=== PATIENT | male | born 1965 | race Two or more races ===

== ENCOUNTER 2022-03-22 18:31 | Inpatient (IN) | payer MEDICAID ==
[~2022-03-22] VITALS: Ht 157.5 cm; Wt 52.2 kg
[2022-03-22] MEDS ORDERED: IV NS 0.9% 1,000 ML BAG IV ONE ×2 (19:00→20:30)
--- NOTE | 2022-03-22 19:12 | NUR ---
BLOOD DRAWN AND SENT TO LAB
--- NOTE | 2022-03-22 19:20 | NUR ---
COVID ANTIGEN SWAB COLLECTED AND SENT TO LAB
--- NOTE | 2022-03-22 19:24 | NUR ---
PT TAKEN TO CT VIA BEN
--- NOTE | 2022-03-22 19:37 | NUR ---
PT RETURNED TO ER BED [address]
[2022-03-22 19:38] LABS: SERUM AMMONIA 157 umol/L (11-32)
[2022-03-22 19:43] LABS: CALCIUM, SERUM 7.3 mg/dL (8.5-10.1); CARBON DIOXIDE 20 mmol/L (21-32); CHLORIDE 93 mmol/L (98-107); POTASSIUM 3.4 mmol/L (3.5-5.1); SODIUM SERUM 126 mmol/L (136-145); UREA NITROGEN, BLOOD 54 mg/dL (7-18)
[2022-03-22 19:45] LABS: GLUCOSE 575 mg/dL (74-106)
--- NOTE | 2022-03-22 19:45 | NUR ---
GLUCOSE 575
--- NOTE | 2022-03-22 19:46 | NUR ---
LACTIC ACID 4.5
[2022-03-22 19:52] LABS: ALANINE AMINOTRANSFERASE 28 U/L (12-78); ALBUMIN 2.9 g/dL (3.4-5.0); ALKALINE PHOSPHATASE 206 U/L (46-116); ASPARTATE AMINOTRANSFERASE 40 U/L (15-37); BILIRUBIN,DIRECT 0.4 mg/dL (0.0-0.2); TOTAL PROTEIN, SERUM 6.7 g/dL (6.4-8.2)
[2022-03-22] MEDS ORDERED: PIPERACILLIN /TAZOBACTAM 3.375 G in IV D5W 50 ML IV ONE (20:30)
[2022-03-22 20:32] LABS: BASOPHILS % (AUTO) 0.3 % (0.0-2.0); EOSINOPHILS % (AUTO) 1.8 % (0.0-6.0); HEMATOCRIT 30 % (39-51); HEMOGLOBIN 9.7 g/dL (13.5-17.5); LYMPHOCYTES # (AUTO) 0.2 K/uL (0.8-4.8); MEAN CORPUSCULAR HGB CONC 32 g/dl (31.0-36.0); MEAN CORPUSCULAR VOLUME 95 fL (80-96); MONOCYTES # (AUTO) 0.3 K/uL (0.1-1.30); MONOCYTES % (AUTO) 12.8 % (2.0-12.0); NEUTROPHILS # (AUTO) 1.9 K/uL (1.8-8.9); NEUTROPHILS % (AUTO) 76.1 % (43.0-81.0); RED BLOOD CELL COUNT(AUTO) 3.15 MIL/uL (4.5-6.0); WHITE BLOOD COUNT (AUTO) 2.5 K/uL (4.3-11.0)
[2022-03-22 20:36] LABS: PLATELET COUNT (AUTO) 29 K/uL (150-450)
--- NOTE | 2022-03-22 20:37 | NUR ---
PLATELETS 29,000
[2022-03-22] MEDS ORDERED: INSULIN REGULAR, HUMAN 100 UNIT/ML 10 ML VIAL ONE (20:43)
[2022-03-22] MEDS ORDERED: PIPERACILLIN /TAZOBACTAM 3.375 G VIAL IV ONE (20:43)
[2022-03-22] MEDS ORDERED: POTASSIUM CL. PREMIX PERIPHER. 100 ML ONE (20:43)
--- NOTE | 2022-03-22 20:52 | NUR ---
ACCUCHECK POC BS - 418
--- NOTE | 2022-03-22 20:58 | NUR ---
SECOND IV LINE ESTABLISHED, R FOREARM 20G.
[2022-03-22] MEDS ORDERED: INSULIN REGULAR, HUMAN 100 UNIT/ML 10 ML VIAL IV ONE (21:00)
[2022-03-22] MEDS: POTASSIUM CL. PREMIX PERIPHER. 50 ML IV SCH ×2 (21:08→22:08)
[2022-03-22 21:21] LABS: BAND % (MANUAL) 4 % (0.0-5.0); EOSINOPHILS % (MANUAL) 1 % (0-4); LYMPHOCYTES % (MANUAL) 10 % (16-48); MONOCYTES % (MANUAL) 13 % (0-11.0); NEUTROPHILS % (MANUAL) 72 (42-76)
[2022-03-22 21:25] LABS: ABG BASE EXCESS -6.2 mmol/L; ABG PCO2 29.6 mmHg (35.0-45.0); ABG PH 7.396 (7.350-7.450); ABG PO2 94.3 mmHg (75.0-100.0); COHb 0.3 % (0.5-1.5); MetHb 0.4 % (0.0-1.5); O2Hb 95.5 % (94.0-97.0); SITE, ABG Right Brachial; VENT MODE, BG RA
--- NOTE | 2022-03-22 21:35 | NUR ---
SET UP WORKER AT PT'S BEDSIDE
--- NOTE | 2022-03-22 21:47 | NUR ---
MARKER DELIVERY AT PT'S BEDSIDE
[2022-03-22] MEDS ORDERED: ONDANSETRON HCL/PF 4 MG/2 ML VIAL IVP PRN (22:00)
[2022-03-22] MEDS ORDERED: ALBUMIN 25% 12.5 GM/50 ML BOTTLE IV ONE (22:00)
[2022-03-22] MEDS ORDERED: DEXTROSE 50%-WATER 50 ML DISP.SYRIN IV PRN (22:00)
[2022-03-22] MEDS ORDERED: INSULIN REGULAR, HUMAN 100 UNIT/ML 3 ML VIAL SQ PRN (22:00)
[2022-03-22] MEDS ORDERED: ACETAMINOPHEN 325 MG TABLET PO PRN (22:00)
[2022-03-22] MEDS: BLOOD SUGAR DIAGNOSTIC 1 EACH STRIP IN SCH (22:45)
--- NOTE | 2022-03-22 22:45 | NUR ---
ACCUCHECK DONE BS 202mg/dl
[2022-03-22] MEDS: LACTULOSE 10 G/15 ML UDC (PYXIS) PO SCH (23:00)
[2022-03-22] MEDS: IV NS 0.9% 1,000 ML IV PRN (23:46)
[2022-03-23] MEDS ORDERED: FURO20TA4 PO (00:22)
[2022-03-23] MEDS ORDERED: METF-440 PO (00:23)
--- NOTE | 2022-03-23 01:53 | NUR ---
URINE OUTPUT 620CC VIA URINAL
--- NOTE | 2022-03-23 04:54 | NUR ---
BC SOUNDING DEVICE OPERATOR HOSPITALIST AT PT'S BEDSIDE
[2022-03-23 05:18] LABS: BASOPHILS % (AUTO) 0.6 % (0.0-2.0); EOSINOPHILS % (AUTO) 2.8 % (0.0-6.0); HEMATOCRIT 26 % (39-51); HEMOGLOBIN 8.7 g/dL (13.5-17.5); LYMPHOCYTES # (AUTO) 0.3 K/uL (0.8-4.8); LYMPHOCYTES % (AUTO) 14.7 % (20.0-44.0); MEAN CORPUSCULAR HGB CONC 33 g/dl (31.0-36.0); MEAN CORPUSCULAR VOLUME 93 fL (80-96); MONOCYTES # (AUTO) 0.2 K/uL (0.1-1.30); MONOCYTES % (AUTO) 10.7 % (2.0-12.0); NEUTROPHILS # (AUTO) 1.5 K/uL (1.8-8.9); NEUTROPHILS % (AUTO) 71.2 % (43.0-81.0); RED BLOOD CELL COUNT(AUTO) 2.84 MIL/uL (4.5-6.0); WHITE BLOOD COUNT (AUTO) 2.2 K/uL (4.3-11.0)
[2022-03-23 05:31] LABS: CALCIUM, SERUM 7.4 mg/dL (8.5-10.1); CREATININE 1.5 mg/dL (0.6-1.3); MAGNESIUM 2.6 mg/dL (1.8-2.4); PHOSPHORUS 3.7 mg/dL (2.5-4.9); POTASSIUM 3.6 mmol/L (3.5-5.1)
--- NOTE | 2022-03-23 05:38 | NUR ---
PER LAB, PLT 20
[2022-03-23] MEDS ORDERED: LACTULOSE 10 G/15 ML UDC (PYXIS) ONE ×2 (06:28→18:41)
[2022-03-23] MEDS: LACTULOSE 10 G/15 ML UDC (PYXIS) PO SCH ×2 (06:30→18:40)
--- NOTE | 2022-03-23 06:57 | NUR ---
ADLS DONE; PT AMBULATORY TO RESTROOM WITH SUPERVISION.
--- NOTE | 2022-03-23 07:25 | NUR ---
Recived pt from NORMA RN pt awake and alert respiation spon and easy no SOB ON ROOM air o2 sat 98% abdomin tigre and distended
--- NOTE | 2022-03-23 07:30 | NUR ---
DR. LEWIS here at bed side examin pt order and closly observ
[2022-03-23] MEDS ORDERED: SPIR100T5 PO (07:54)
[2022-03-23] MEDS ORDERED: DOCU-275 PO (07:54)
[2022-03-23] MEDS ORDERED: APIX2.5T PO (07:54)
[2022-03-23] MEDS ORDERED: MIDO2.5T PO (07:54)
--- NOTE | 2022-03-23 08:13 | NUR ---
vs stable for pt contenue observe and monited wating to césar bed
[2022-03-23] MEDS: BLOOD SUGAR DIAGNOSTIC 1 EACH STRIP IN SCH ×4 (08:50→22:34)
--- NOTE | 2022-03-23 09:24 | NUR ---
offered patient meal and verbalized "i don't want to eat". no insulin coverage given.
[2022-03-23 10:25] LABS: PLATELET COUNT (AUTO) 20 K/uL (150-450)
--- NOTE | 2022-03-23 10:51 | NUR ---
pt asleepy responded when call came
[2022-03-23] MEDS: MIDODRINE HCL 2.5 MG TABLET PO SCH (18:40)
[2022-03-23] MEDS ORDERED: MIDODRINE HCL (5MG) 5 MG TABLET ONE (18:41)
[2022-03-23] MEDS: IV NS 0.9% 1,000 ML IV PRN (18:58)
--- NOTE | 2022-03-23 19:02 | NUR ---
GOT BED 115-2
--- NOTE | 2022-03-23 20:05 | NUR ---
REPORT GIVEN TO JANELLE MIDDLETON FOR TRAVIS. UPDATED ROOM 116-2
[2022-03-23 20:20] VITALS: BP 99/66
--- NOTE | 2022-03-23 20:20 | NUR ---
césar rn notes Admitted a 57 y/o male a/ox3 able to make needs known with dx of LEAH under the service of damián hoffman . pts is npo status , all neeeds attended to . pts noted with abdominal distension , ascites , kept pts comfortable , call light within reach , will continue to monitor.
--- NOTE | 2022-03-23 20:25 | NUR ---
PT TRANSFERRED TO [facility] BED 116-2 VIA ACLS PROTOCOL. ALL BELONGINGS WITH PT. VSS
[2022-03-23] MEDS ORDERED: DEXTROSE 50%-WATER 50 ML DISP.SYRIN IV PRN (22:30)
[2022-03-23] MEDS ORDERED: *INSULIN REGULAR(HUMULIN R)HUM 100 UNIT/ML VIAL SQ PRN (22:30)
[2022-03-23] MEDS: INSULIN REGULAR, HUMAN 100 UNIT/ML 3 ML VIAL SQ PRN (22:34)
--- NOTE | 2022-03-23 22:38 | NUR ---
césar rn notes Blood sugar at 2200 hrs is 196mg/dl 4 units of regular insulin given per sliding scale pts on po diet will continue to monitor pts.
[2022-03-24] VITALS: BP 102/66
[2022-03-24 04:00] VITALS: BP 90/53
[2022-03-24] MEDS: LACTULOSE 10 G/15 ML UDC (PYXIS) PO SCH ×2 (06:00→17:29)
--- NOTE | 2022-03-24 06:47 | NUR ---
clerk television production notes pts remain in bed awake alert and responsive npo status , continue on iv fluids ns at 75cc/hr infusing well . all needs meet , will endorse to rn day shift for continuity of care
[2022-03-24 07:18] LABS: BASOPHILS % (AUTO) 0.9 % (0.0-2.0); EOSINOPHILS % (AUTO) 4.9 % (0.0-6.0); HEMATOCRIT 28 % (39-51); HEMOGLOBIN 9.1 g/dL (13.5-17.5); LYMPHOCYTES # (AUTO) 0.4 K/uL (0.8-4.8); MEAN CORPUSCULAR HGB CONC 33 g/dl (31.0-36.0); MEAN CORPUSCULAR VOLUME 93 fL (80-96); MONOCYTES # (AUTO) 0.3 K/uL (0.1-1.30); MONOCYTES % (AUTO) 12.5 % (2.0-12.0); NEUTROPHILS # (AUTO) 1.6 K/uL (1.8-8.9); NEUTROPHILS % (AUTO) 64.7 % (43.0-81.0); RED BLOOD CELL COUNT(AUTO) 2.96 MIL/uL (4.5-6.0); WHITE BLOOD COUNT (AUTO) 2.5 K/uL (4.3-11.0)
--- NOTE | 2022-03-24 07:20 | NUR ---
RN NOTE RECEIVED PATIENT IN BED RESTING ALERT ORIENTED X3 VERBALLY RESPONSIVE ON ROOM AIR O2:97% IV SITE IS ON RIGHT AC INTACT PATENT ON IV HYDRATION NS 75CC/HR SAFETY MEASURE IMPLEMENT BED IN LOW POSITION AND LOCKED, CALL LIGHT WITHIN REACH, CONTINUE TO MONITOR.
[2022-03-24] MEDS: BLOOD SUGAR DIAGNOSTIC 1 EACH STRIP IN SCH ×4 (07:27→22:04)
[2022-03-24 07:38] LABS: PLATELET COUNT (AUTO) 27 K/uL (150-450)
[2022-03-24 07:45] LABS: ALBUMIN 2.5 g/dL (3.4-5.0); BILIRUBIN,DIRECT 0.3 mg/dL (0.0-0.2); BILIRUBIN,TOTAL 0.9 mg/dL (0.2-1.0); CALCIUM, SERUM 7.5 mg/dL (8.5-10.1); CREATININE 1.2 mg/dL (0.6-1.3); MAGNESIUM 2.5 mg/dL (1.8-2.4); PHOSPHORUS 3.1 mg/dL (2.5-4.9); POTASSIUM 3.5 mmol/L (3.5-5.1); TOTAL PROTEIN, SERUM 5.6 g/dL (6.4-8.2)
[2022-03-24 08:00] VITALS: BP 95/65
[2022-03-24] MEDS: DOCUSATE SODIUM 100 MG CAPSULE PO SCH (09:00)
[2022-03-24] MEDS: MIDODRINE HCL 2.5 MG TABLET PO SCH (09:00)
[2022-03-24] MEDS: IV NS 0.9% 1,000 ML IV PRN ×2 (09:11→22:06)
[2022-03-24 12:00] VITALS: BP 91/65
--- NOTE | 2022-03-24 15:57 | NUR ---
RN NOTE RADIOLOGY CALLED THEY CANNOT DO PARACENTESIS BECAUSE PATIENT PLATELET IS LOW 27 SHOULD BE ABOVE [address] OGLESBY SHE ORDERED ONE UNIT PLATELETS AND TRY TOMORROW NOTED AND CARRIED OUT.
[2022-03-24 16:00] VITALS: BP 95/64
[2022-03-24] MEDS: MIDODRINE HCL (5MG) 5 MG TABLET PO SCH (17:28)
--- NOTE | 2022-03-24 18:00 | NUR ---
RN NOTE CONSENT FOR BLOOD TRANSFUSION AND PARACENTESIS DONE,PATIENT SIGNED CONSENT PAPERS AFTER EXPLAINED,RISKS AND BENEFITS IN [place] WITH ANG[place]AN COWORKER.
--- NOTE | 2022-03-24 19:15 | NUR ---
RN NOTE RECEIVED PATIENT IN BED, AO X 3-4, SLOVAK SPEAKING, IN NO ACUTE DISTRESS AT THIS TIME. RESPIRATIONS UNLABORED, SATURATION AT 97% ON ROOM AIR, SR ON THE MONITOR, HR IS 88. NOTED IV SITE AT RFA 22G, AND LFA 20G, BOTH PATENT AND FLUSHING WELL, NO S/S OF INFECTION OR INFILTRATION. PATIENT CONTINENT AND USES URINAL. NPO STATUS MAINTAINED PER MD ORDER, AWAITING US GUIDED PARACENTESIS. PER RADHA MIDDLETON, WITH MD ORDER FOR PLATELET TRANSFUSION CURRENT PLATELET LEVEL IS 27. SAFETY MEASURES IMPLEMENTED. PATIENT BED ALARM IS ON. HEAD OF BED ELEVATED. BED IS LOCKED, IN LOWEST POSITION AND SIDE RAILS UP. CALL LIGHT WITHIN REACH OF THE PATIENT. WILL CONTINUE TO MONITOR AND REASSESS FOR ANY CHANGES.
--- NOTE | 2022-03-24 19:52 | NUR ---
RN NOTE PATIENT REMAINS ALERT ORIENTED X3 VERBALLY RESPONSIVE NO SOB NOT ACUTE DISTRESS NOTED,ENDORSE NEXT COMING SHIFT FOR CONTINUATION OF CARE.
[2022-03-24 20:00] VITALS: BP 92/64
--- NOTE | 2022-03-24 20:30 | NUR ---
RN NOTE TELEPHONE CALL TO LAB, SPOKE WITH SHAYLA, VERIFIED IF ORDER FOR BLOOD TRANSFUSION WAS RECEIVED, ADVISED HER PT HAS MD ORDER FOR PLATELET WITH PARAMETER TO TRANSFUSE IF PLATELET IS <50, SHE SAID NO BLOOD TRANSFUSION ORDERS RECEIVED. CLARIFIED ORDER WITH DR YANCEY, PER RN REPORT, ORDER IS TO TRANSFUSE PLATELET BUT STANDING ORDER ON FILE IS FOR PLASMA IF PLATELET <50. CURRENT LEVEL IS 27. SHE STATED "1 UNIT PLATELET IS FINE".
[2022-03-24] MEDS: INSULIN REGULAR, HUMAN 100 UNIT/ML 3 ML VIAL SQ PRN (22:06)
--- NOTE | 2022-03-24 23:15 | NUR ---
RN NOTE TELEPHONE CALL TO LAB TO FOLLOW UP ON ORDERED PLATELET FOR TRANSFUSION, SPOKE WITH OG, STATED CLS IS GONE FOR THE DAY AND ANOTHER CLS WILL NOT BE AVAILABLE UNTIL AFTER 6 AM. NARROW GAUGE OPERATOR BARRIE ERVIN
[2022-03-25] VITALS: BP 95/61
[2022-03-25 04:00] VITALS: BP 96/67
[2022-03-25] MEDS: LACTULOSE 10 G/15 ML UDC (PYXIS) PO SCH ×3 (05:03→17:42)
--- NOTE | 2022-03-25 06:10 | NUR ---
RN NOTE TELEPHONE CALL TO BLOOD BANK TO FOLLOW UP ON ORDER FOR PLATELET, SPOKE WITH JOSE DAVID, STATED PLATELET NOT AVAILABLE INHOUSE AND WAS ORDERED FROM [facility]. HE SAID THEY ARE STILL WAITING TO HEAR BACK FROM [facility]. DR YANCEY WAS NOTIFIED.
[2022-03-25 06:59] LABS: BASOPHILS % (AUTO) 0.7 % (0.0-2.0); EOSINOPHILS % (AUTO) 5.7 % (0.0-6.0); HEMATOCRIT 33 % (39-51); HEMOGLOBIN 10.7 g/dL (13.5-17.5); LYMPHOCYTES # (AUTO) 0.6 K/uL (0.8-4.8); LYMPHOCYTES % (AUTO) 17.9 % (20.0-44.0); MEAN CORPUSCULAR HGB CONC 33 g/dl (31.0-36.0); MEAN CORPUSCULAR VOLUME 93 fL (80-96); MONOCYTES # (AUTO) 0.4 K/uL (0.1-1.30); MONOCYTES % (AUTO) 11.7 % (2.0-12.0); NEUTROPHILS # (AUTO) 2.2 K/uL (1.8-8.9); WHITE BLOOD COUNT (AUTO) 3.4 K/uL (4.3-11.0)
--- NOTE | 2022-03-25 07:00 | NUR ---
RN NOTE RECEIVED PATIENT IN BED RESTING ALERT ORIENTED X3 ON ROOM AIR IO2:99% IV SITE IS LEFT FOREARM AND RIGHT FOREARM INTACT PATENT,ON IV HYDRATION NS 75CC/HR SAFETY MEASURE IMPLEMENT BED IN LOW POSITION AND LOCKED, CALL LIGHT WITHIN REACH CONTINUE TO MONITOR.
--- NOTE | 2022-03-25 07:10 | NUR ---
RN NOTE PT REMAINS STABLE ON ROOM AIR, BM X3, AWAITING PLATELET TRANSFUSION, REPORT GIVEN TO RADHA MIDDLETON FOR TRAVIS.
[2022-03-25 07:13] LABS: PLATELET COUNT (AUTO) 35 K/uL (150-450)
[2022-03-25] MEDS: BLOOD SUGAR DIAGNOSTIC 1 EACH STRIP IN SCH ×4 (07:30→22:10)
[2022-03-25 07:31] LABS: CALCIUM, SERUM 8.2 mg/dL (8.5-10.1); CREATININE 1.2 mg/dL (0.6-1.3); MAGNESIUM 2.7 mg/dL (1.8-2.4); PHOSPHORUS 3.3 mg/dL (2.5-4.9); POTASSIUM 3.8 mmol/L (3.5-5.1)
[2022-03-25 08:00] VITALS: BP 101/79
[2022-03-25] MEDS: DOCUSATE SODIUM 100 MG CAPSULE PO SCH (08:41)
[2022-03-25] MEDS: MIDODRINE HCL (5MG) 5 MG TABLET PO SCH ×2 (08:44→17:32)
--- NOTE | 2022-03-25 09:25 | NUR ---
NOTIFIED RN SERGEI @ EXT. [id number] @ 08:27 THAT PLATELET COUNT IS LOW AND US GUIDED PARACENTESIS CANNOT BE DONE TODAY BASED ON PROTOCOL. RN WILL INFUSE PLATELETS AND PROCEDURE SHOULD BE FOLLOWED UP TOMORROW.
--- NOTE | 2022-03-25 09:26 | NUR ---
RN NOTE CALLED BLOOD BANK FOLLOW UP FOR PLATELET SPOKE WITH JOSE DAVID IS NOT AVAILABLE IN HOUSE WAITING FOR [facility] TO RECEIVE IT. Addendum: 03/25/22 at 1015 by RADHA JEFFERS RN ALSO NOTIFIED DR OGLESBY, CONTINUE TO MONITOR.
[2022-03-25] MEDS: IV NS 0.9% 1,000 ML IV PRN (11:26)
[2022-03-25 12:00] VITALS: BP 90/67
--- NOTE | 2022-03-25 12:39 | NUR ---
RN NOTE CALLED BLOOD BANK SPOKE WITH JOSE DAVID REGARDING PLATELET, HE SAID WHEN HE RECEIVED WILL LET ME KNOW DR OGLESBY AWARE.
[2022-03-25 16:00] VITALS: BP 108/69
--- NOTE | 2022-03-25 16:53 | NUR ---
RN NOTE CALLED BLOOD BANK FOLLOW UP FOR PLATELET NOT RECEIVED YET NOTIFIED STRAW HAT BRIM CUTTER OPERATOR,DR OGLESBY AWARE.
--- NOTE | 2022-03-25 19:05 | NUR ---
RN NOTE PATIENT REMAINS ALERT ORIENTED X3 VERBALLY RESPONSIVE ON ROOM AIR NO SOB NOT ACUTE DISTRESS NOTED, FOR PLATELET ENDORSE RISK CONTROL FIELD REPRESENTATIVE FOR FOLLOWING UP,ENDORSE COMING SHIFT FOR CONTINUATION OF CARE.
[2022-03-25 20:00] VITALS: BP 108/75
--- NOTE | 2022-03-25 21:06 | NUR ---
tourist camp attendant Opening Note Pt received in bed awake A&O x3. On RA with O2sat 98%, no s/s of resp distress, no SOB, non-labored breathing; appears comfortable. Attached to external monitor, SR with HR 90. IV lines LFA 20G and RFA 22G intact and patent; no s/s of infiltration; has NS running at 75 ml/hr. Bed in lowest position, call light within reach, side rails up x3. Will monitor throughout the night.
[2022-03-25] MEDS: INSULIN REGULAR, HUMAN 100 UNIT/ML 3 ML VIAL SQ PRN (22:18)
[2022-03-26] VITALS (10 sets, daily range): BP systolic 89–116; BP diastolic 60–83
[2022-03-26] MEDS: IV NS 0.9% 1,000 ML IV PRN ×2 (01:30→18:27)
[2022-03-26] MEDS: LACTULOSE 10 G/15 ML UDC (PYXIS) PO SCH ×2 (06:13→17:02)
[2022-03-26 06:34] LABS: CALCIUM, SERUM 7.8 mg/dL (8.5-10.1); CREATININE 1.4 mg/dL (0.6-1.3); MAGNESIUM 2.4 mg/dL (1.8-2.4); PHOSPHORUS 3.8 mg/dL (2.5-4.9); POTASSIUM 3.7 mmol/L (3.5-5.1)
[2022-03-26 06:37] LABS: EOSINOPHILS % (AUTO) 4.3 % (0.0-6.0); HEMATOCRIT 29 % (39-51); HEMOGLOBIN 9.6 g/dL (13.5-17.5); LYMPHOCYTES # (AUTO) 0.5 K/uL (0.8-4.8); LYMPHOCYTES % (AUTO) 19.1 % (20.0-44.0); MEAN CORPUSCULAR HGB CONC 33 g/dl (31.0-36.0); MEAN CORPUSCULAR VOLUME 94 fL (80-96); MONOCYTES # (AUTO) 0.3 K/uL (0.1-1.30); MONOCYTES % (AUTO) 10.8 % (2.0-12.0); NEUTROPHILS # (AUTO) 1.8 K/uL (1.8-8.9); NEUTROPHILS % (AUTO) 64.8 % (43.0-81.0); WHITE BLOOD COUNT (AUTO) 2.8 K/uL (4.3-11.0)
--- NOTE | 2022-03-26 06:54 | NUR ---
jewel stripper Closing Note Pt in bed, awake A&O x3; slept intermittently throughout the night. On RA with O2sat 99%, no s/s of resp distress, no SOB, non-labored breathing; appears comfortable. Attached to external monitor, SR throughout the night with HR 81. IV lines Left hand 20G and RFA 22G intact and patent; no s/s of infiltration; has NS running at 75 ml/hr. Still no notification from lab if they have received the platelets from [employer]; will endorse to dayshift nurse. All due meds and fluids administered throughout shift. Bed in lowest position, call light within reach, side rails up x3. Will endorse to dayshift nurse to continue care.
[2022-03-26] MEDS: BLOOD SUGAR DIAGNOSTIC 1 EACH STRIP IN SCH ×4 (07:46→23:40)
[2022-03-26 07:59] LABS: PLATELET COUNT (AUTO) 34 K/uL (150-450)
--- NOTE | 2022-03-26 08:00 | NUR ---
RN NOTES PATIENT ABLE TO AMBULATE W/ ASSIST; NOT IN ACUTE DISTRESS. CITIZEN OF [place]-SPEAKING, ABLE TO MAKE NEEDS KNOWN. CURRENTLY NPO STATUS. SAFETY MEASURES IN PLACE.
[2022-03-26] MEDS: DOCUSATE SODIUM 100 MG CAPSULE PO SCH (08:45)
[2022-03-26] MEDS: MIDODRINE HCL (5MG) 5 MG TABLET PO SCH ×2 (08:46→16:21)
[2022-03-26] MEDS: INSULIN REGULAR, HUMAN 100 UNIT/ML 3 ML VIAL SQ PRN ×2 (12:19→23:44)
--- NOTE | 2022-03-26 12:23 | NUR ---
RN NOTES ASKED PATIENT IF HE FEELS HUNGRY AND PATIENT STATED NO.
--- NOTE | 2022-03-26 13:35 | NUR ---
RN NOTES CALLED LAB AND FOLLOWED UP PLATELET BLOOD PRODUCT; SPOKE W/ [employer]. NO AVAILABLE PLATELET BUT WILL ORDER TODAY AND WILL LET US KNOW WHEN IT IS READY.
--- NOTE | 2022-03-26 13:52 | NUR ---
RN NOTES SPOKE W/ LAB; WILL HAVE PLATELET BLOOD PRODUCT IN ABOUT 4-5 HOURS COMING FROM [facility].
--- NOTE | 2022-03-26 15:03 | NUR ---
RN NOTES DR. OGLESBY MADE AWARE OF PATIENT'S NPO STATUS. PER MD, OK FOR PATIENT TO EAT FOR NOW THEN NPO POST MIDNIGHT. ORDER FOR MORPHINE 2MG IV Q6H PRN FOR ABDOMINAL PAIN.
[2022-03-26] MEDS: MORPHINE SULFATE INJ 2 MG/ML DISP.SYRIN IV PRN (16:26)
--- NOTE | 2022-03-26 18:15 | NUR ---
RN NOTES PATIENT W/ DINNER TRAY AT BEDSIDE. ENCOURAGED PATIENT TO EAT BUT PATIENT STATES THAT HE DOES NOT WANT TO EAT. PROVIDED JELLO AND WATER TO PATIENT, TAKEN FAIRLY. ASSISTED W/ TOILETING APPLICABLE. PAIN MGT APPROPRIATE. IVF INFUSING WELL. SAFETY MEASURES MAINTAINED.
--- NOTE | 2022-03-26 18:20 | NUR ---
RN NOTES NPO POST MIDNIGHT PER MD.
--- NOTE | 2022-03-26 20:09 | NUR ---
SCRIPT MANAGER OPENING NOTE PATIENT SLEEPING IN BED, EASILY AWAKENED, PATIENT ALERT/ORIENTED X 4, PRIMARILY MALAY SPEAKING. PT ABLE TO MAKE NEEDS KNOWN. PATIENT STABLE ON RA, NO S/S OF DISTRESS OR SOB NOTED, BREATHING EVEN AND UNLABORED. PATIENT ON EXTERNAL CAMERA REPAIRMAN READING SINUS RHYTHM, HR: 92. RFA #20G INTACT AND INFUSING NS @ 75 ML/HR. SAFETY MEASURES IN PLACE: CALL LIGHT WITHIN REACH, SIDE RAILS UP X 2, BED LOCKED IN LOWEST POSITION, BED ALARM ON. WILL CONTINUE PLAN OF CARE AND TO MONITOR PATIENT
--- NOTE | 2022-03-26 22:30 | NUR ---
NAVAL INSPECTOR NOTE 1 BAG OF PLATELETS INFUSED, PATIENT TOLERATED WELL, NO ADVERSE REACTIONS, VITAL SIGNS WNL. WILL CONTINUE TO MONITOR PATIENT
[2022-03-27] VITALS (9 sets, daily range): BP systolic 87–98; BP diastolic 59–73
[2022-03-27] MEDS: LACTULOSE 10 G/15 ML UDC (PYXIS) PO SCH ×2 (06:00→18:00)
--- NOTE | 2022-03-27 07:07 | NUR ---
REPAIR WELDER CLOSING NOTE PATIENT SLEEPING IN BED, EASILY AWAKENED, PATIENT ALERT/ORIENTED X 4, KOREAN SPEAKING. PT ABLE TO MAKE NEEDS KNOWN. PATIENT STABLE ON RA, NO S/S OF DISTRESS OR SOB NOTED, BREATHING EVEN AND UNLABORED. PATIENT ON EXTERNAL THIOKOL OPERATOR READING SINUS RHYTHM, HR: 90. RFA #20G INTACT AND INFUSING NS @ 75 ML/HR. MEDICATIONS GIVEN ORDRED, PT NEEDS MET THROUGHOUT SHIFT. PATIENT NPO SINCE MIDNIGHT FOR PARACENTESIS TODAY. PLATELETS INFUSED LAST NIGHT. SAFETY MEASURES IN PLACE: CALL LIGHT WITHIN REACH, SIDE RAILS UP X 2, BED LOCKED IN LOWEST POSITION, BED ALARM ON. WILL ENDORSE TO DAY SHIFT NURSE FOR CONTINUITY OF CARE
[2022-03-27 07:15] LABS: BASOPHILS % (AUTO) 0.5 % (0.0-2.0); EOSINOPHILS % (AUTO) 3.8 % (0.0-6.0); HEMATOCRIT 30 % (39-51); LYMPHOCYTES # (AUTO) 0.6 K/uL (0.8-4.8); MEAN CORPUSCULAR HGB CONC 33 g/dl (31.0-36.0); MEAN CORPUSCULAR VOLUME 94 fL (80-96); MONOCYTES # (AUTO) 0.4 K/uL (0.1-1.30); MONOCYTES % (AUTO) 10.6 % (2.0-12.0); NEUTROPHILS # (AUTO) 2.6 K/uL (1.8-8.9); NEUTROPHILS % (AUTO) 69.1 % (43.0-81.0); RED BLOOD CELL COUNT(AUTO) 3.21 MIL/uL (4.5-6.0); WHITE BLOOD COUNT (AUTO) 3.8 K/uL (4.3-11.0)
[2022-03-27 07:35] LABS: CALCIUM, SERUM 7.8 mg/dL (8.5-10.1); CREATININE 1.6 mg/dL (0.6-1.3); MAGNESIUM 2.3 mg/dL (1.8-2.4); PHOSPHORUS 4.9 mg/dL (2.5-4.9); POTASSIUM 3.9 mmol/L (3.5-5.1)
[2022-03-27] MEDS: BLOOD SUGAR DIAGNOSTIC 1 EACH STRIP IN SCH ×4 (07:37→21:46)
--- NOTE | 2022-03-27 07:50 | NUR ---
SECRETARY ADMINISTRATIVE ASSISTANT OPENING NOTE RECEIVED PATIENT SLEEPING IN BED, EASILY AWAKENED, PATIENT ALERT/ORIENTED X 4, POLISH SPEAKING. PT ABLE TO MAKE NEEDS KNOWN. PATIENT STABLE ON RA, NO S/S OF DISTRESS OR SOB NOTED, BREATHING EVEN AND UNLABORED. NO COMPLAINS OF PAIN AT THIS TIME. PATIENT ON EXTERNAL DISABILITY INSURANCE CLAIM EXAMINER READING SINUS RHYTHM, HR: 80. RFA #20G INTACT AND INFUSING NS @ 75 ML/HR. PATIENT NPO SINCE MIDNIGHT FOR PARACENTESIS TODAY. SAFETY MEASURES IN PLACE: BED IN LOW POSITION AND LOCKED, RAILS UP X2, CALL LIGHT WITHIN REACH. WILL CONTINUE TO MONITOR PATIENT.
[2022-03-27 08:24] LABS: PLATELET COUNT (AUTO) 42 K/uL (150-450)
[2022-03-27] MEDS: DOCUSATE SODIUM 100 MG CAPSULE PO SCH (08:24)
[2022-03-27] MEDS: MIDODRINE HCL (5MG) 5 MG TABLET PO SCH ×2 (09:00→16:42)
[2022-03-27] MEDS: IV NS 0.9% 1,000 ML IV PRN (11:16)
--- NOTE | 2022-03-27 18:56 | NUR ---
ACTIVITIES VOLUNTEER CLOSING NOTE PATIENT REMAINS IN BED, ASLEEP BUT EASILY AWAKE. PATIENT ALERT/ORIENTED X 4, [place] SPEAKING. PT ABLE TO MAKE NEEDS KNOWN DURING THE SHIFT. PATIENT STABLE ON RA, NO S/S OF DISTRESS OR SOB NOTED, BREATHING EVEN AND UNLABORED. NO COMPLAINS OF PAIN DURING THE DAY. PATIENT ON EXTERNAL TRAILERS AND MOTOR HOMES SALESPERSON READING SINUS RHYTHM, HR: 80. RFA #20G INTACT AND INFUSING NS @ 75 ML/HR. PATIENT REMAINS NPO. ALL NEEDS ATTENDED DURING THE DAY. SAFETY MEASURES IN PLACE: BED IN LOW POSITION AND LOCKED, RAILS UP X2, CALL LIGHT WITHIN REACH. WILL ENDORSE TO MATERIAL HANDLER FLOORPERSON NURSE FOR TRAVIS.
--- NOTE | 2022-03-27 18:56 | NUR ---
PARKING MANAGER NOTES LAB CALLED WITH 1 UNIT PLATELETS READY. WILL ENDORSE TO HEDGE FUND TRADER NURSE.
--- NOTE | 2022-03-27 19:30 | NUR ---
RN OPENING NOTES RECEIVED PT IN BED, AWAKE. AOx4, MALTESE SPEAKING. ON RA AND TOLERATING WELL. NO SOB NOTED. NO S/SX OF RESPIRATORY DISTRESS NOTED. TELE MONITOR DETECTS SINUS RHYTHM WITH RATE OF 80. IV ACCESSIN RFA #20G RUNNING NS @ 75 ML/HR. AND L HAND #20G S/L. SAFETY PRECAUTIONS IN PLACE: BED IN LOWEST, LOCKED POSITION, SIDERAILS UPx2, AND BRAKES ON. TABLE AND CALL LIGHT WITHIN REACH. WILL CONTINUE TO MONITOR.
[2022-03-27] MEDS ORDERED: KETOROLAC TROMETHAMINE INJ 30 MG/ML VIAL IV ONE (21:30)
[2022-03-28] MEDS: IV NS 0.9% 1,000 ML IV PRN ×2 (03:52→13:20)
[2022-03-28 04:00] VITALS: BP 77/48
[2022-03-28] MEDS ORDERED: ACETAMINOPHEN 325 MG TABLET PO PRN (05:00)
[2022-03-28] MEDS ORDERED: IV NS 0.9% 500 ML IV ONE (05:00)
--- NOTE | 2022-03-28 05:08 | NUR ---
RN NOTES PT HAD HYPOTENSION, 77/48, LET DOCTOR BC KNOW. SHE ORDERED 500 CC BOLUS OF NS. WILL CONTINUE TO MONITOR.
[2022-03-28] MEDS: LACTULOSE 10 G/15 ML UDC (PYXIS) PO SCH ×2 (06:00→18:12)
--- NOTE | 2022-03-28 06:53 | NUR ---
RN CLOSING NOTES PT IN BED, AWAKE. AOx4, [place] CITIZEN SPEAKING. ON RA AND TOLERATING WELL. NO SOB NOTED. NO S/SX OF RESPIRATORY DISTRESS NOTED. TELE MONITOR DETECTS SINUS RHYTHM WITH RATE OF 80. IV ACCESS IN RFA #20G RUNNING NS @ 75 ML/HR AND L HAND #20G S/L. ALL ORDERS CARRIED OUT. ALL NEEDS ME.T PT KEPT CLEAN AND DRY. ADMINISTERED PLATELETS WITH NO REACTIONS. SAFETY PRECAUTIONS IN PLACE: BED IN LOWEST, LOCKED POSITION, SIDERAILS UPx2, AND BRAKES ON. TABLE AND CALL LIGHT WITHIN REACH. WILL ENDORSE TO ONCOMING SHIFT FOR TRAVIS.
[2022-03-28 07:15] LABS: CALCIUM, SERUM 7.8 mg/dL (8.5-10.1); CREATININE 1.7 mg/dL (0.6-1.3); MAGNESIUM 2.2 mg/dL (1.8-2.4); POTASSIUM 4.5 mmol/L (3.5-5.1)
--- NOTE | 2022-03-28 07:30 | NUR ---
RN OPENING NOTE PATIENT IS IN BED, ON SEMI HU'S POSITION, AWAKE, ORIENTED, ALBANIAN SPEAKING ONLY, TRANSLATION C/O IVETT ENGLE. ON ROOM AIR, NOT IN LABORED BREATHING. WITH LEFT HAND SALINE LOCK INTACT AND PATENT. WITH RIGHT FOREARM IV INFUSING WITH NS AT 75 ML/HR. BED IS LOCKED IN LOWEST POSITION, 3 GUARD RAILS RAISED, CALL MAHMOOD WITHIN REACH, AND ALL HOSPITAL SAFETY PRECAUTIONS ARE IN PLACE. WILL CONTINUE TO MONITOR THROUGHOUT SHIFT.
[2022-03-28 07:50] LABS: BASOPHILS % (AUTO) 0.5 % (0.0-2.0); EOSINOPHILS % (AUTO) 3.9 % (0.0-6.0); HEMATOCRIT 29 % (39-51); HEMOGLOBIN 9.6 g/dL (13.5-17.5); LYMPHOCYTES # (AUTO) 0.5 K/uL (0.8-4.8); LYMPHOCYTES % (AUTO) 14.9 % (20.0-44.0); MEAN CORPUSCULAR HGB CONC 34 g/dl (31.0-36.0); MEAN CORPUSCULAR VOLUME 93 fL (80-96); MONOCYTES # (AUTO) 0.3 K/uL (0.1-1.30); MONOCYTES % (AUTO) 10.7 % (2.0-12.0); NEUTROPHILS # (AUTO) 2.2 K/uL (1.8-8.9); RED BLOOD CELL COUNT(AUTO) 3.07 MIL/uL (4.5-6.0); WHITE BLOOD COUNT (AUTO) 3.2 K/uL (4.3-11.0)
[2022-03-28] MEDS: BLOOD SUGAR DIAGNOSTIC 1 EACH STRIP IN SCH ×4 (07:51→21:29)
[2022-03-28] MEDS: INSULIN REGULAR, HUMAN 100 UNIT/ML 3 ML VIAL SQ PRN ×3 (07:53→17:20)
[2022-03-28 07:58] LABS: PLATELET COUNT (AUTO) 39 K/uL (150-450)
[2022-03-28 08:00] VITALS: BP 83/61
[2022-03-28] MEDS: MIDODRINE HCL (5MG) 5 MG TABLET PO SCH ×2 (08:59→16:57)
[2022-03-28] MEDS: DOCUSATE SODIUM 100 MG CAPSULE PO SCH (09:00)
[2022-03-28] MEDS: MORPHINE SULFATE INJ 2 MG/ML DISP.SYRIN IV PRN (10:21)
[2022-03-28 12:02] VITALS: BP 96/67
[2022-03-28 16:04] VITALS: BP 94/62
[2022-03-28 18:27] LABS: BASOPHILS % (AUTO) 0.7 % (0.0-2.0); HEMATOCRIT 30 % (39-51); HEMOGLOBIN 9.8 g/dL (13.5-17.5); LYMPHOCYTES # (AUTO) 0.7 K/uL (0.8-4.8); MEAN CORPUSCULAR HGB CONC 33 g/dl (31.0-36.0); MEAN CORPUSCULAR VOLUME 94 fL (80-96); MONOCYTES # (AUTO) 0.6 K/uL (0.1-1.30); NEUTROPHILS # (AUTO) 2.7 K/uL (1.8-8.9); NEUTROPHILS % (AUTO) 64.3 % (43.0-81.0); WHITE BLOOD COUNT (AUTO) 4.2 K/uL (4.3-11.0)
[2022-03-28 18:36] LABS: PLATELET COUNT (AUTO) 43 K/uL (150-450)
[2022-03-28 18:37] LABS: EOSINOPHILS % (MANUAL) 4 % (0-4); LYMPHOCYTES % (MANUAL) 11 % (16-48); MONOCYTES % (MANUAL) 10 % (0-11.0); NEUTROPHILS % (MANUAL) 75 (42-76)
--- NOTE | 2022-03-28 19:06 | NUR ---
RN CLOSING NOTE PATIENT IS IN BED, ON SEMI HU'S POSITION, AWAKE, ORIENTED, BURUNDIAN SPEAKING ONLY, ON ROOM AIR, NOT IN LABORED BREATHING. WITH LEFT HAND SALINE LOCK INTACT AND PATENT. WITH RIGHT FOREARM IV INFUSING WITH NS AT 75 ML/HR. BED IS LOCKED IN LOWEST POSITION, 3 GUARD RAILS RAISED, CALL MAHMOOD WITHIN REACH, AND ALL HOSPITAL SAFETY PRECAUTIONS ARE IN PLACE. PATIENT STABLE THROUGHOUT SHIFT. WILL ENDORSE TO GRANT MANAGER NURSE..
[2022-03-28 20:00] VITALS: BP 107/73
--- NOTE | 2022-03-28 20:52 | NUR ---
RN NOTE WAS ENDORSED THAT PATIENT IS TO RECEIVED 2 UNIT PLT TRANSFUSION TONIGHT FOR PARACENTHESIS TOMORROW. CALLED BLOOD BANK TO FOLLOW UP IF PLT READY TO BE PICKED UP. RECEIVED CALL BACK FROM NIA TUCKER, STATED THE PLTS WILL NOT BE DELIVERED TONIGHT D/T [facility] HAS A PLT SHORTAGE AND PATIENT IS NOT AN EXTREME CASE OR CRITICAL. STATED HE WILL FOLLOW UP FOR THE PLT TOMORROW. ECONOMICS INSTRUCTOR AWARE. RN LSAT INSTRUCTOR AWARE. SHIP ENGINEER SNEHAL HAMILTON NP AWARE. PLT COUNT CURRENTLY 43. CBC IS ALREADY ORDERED FOR AM. Addendum: 03/28/22 at 2121 by ARCELIA ROTHMAN RN PACKAGE CRIMPER NIA SPOKE WITH [facility] GERIATRIC PSYCHIATRIST, AND [facility] GERIATRIC PSYCHIATRIST, STATES TO HAVE DOCTOR PLACE ANOTHER ORDER FOR PLT TOMORROW.
[2022-03-29] VITALS (7 sets, daily range): BP systolic 89–103; BP diastolic 52–73
[2022-03-29] MEDS: MORPHINE SULFATE INJ 2 MG/ML DISP.SYRIN IV PRN (00:17)
[2022-03-29] MEDS: LACTULOSE 10 G/15 ML UDC (PYXIS) PO SCH ×2 (06:00→18:22)
[2022-03-29 06:39] LABS: BASOPHILS % (AUTO) 0.7 % (0.0-2.0); EOSINOPHILS % (AUTO) 5.3 % (0.0-6.0); HEMATOCRIT 29 % (39-51); HEMOGLOBIN 9.7 g/dL (13.5-17.5); LYMPHOCYTES # (AUTO) 0.7 K/uL (0.8-4.8); MEAN CORPUSCULAR HGB CONC 33 g/dl (31.0-36.0); MEAN CORPUSCULAR VOLUME 95 fL (80-96); MONOCYTES # (AUTO) 0.5 K/uL (0.1-1.30); MONOCYTES % (AUTO) 13.1 % (2.0-12.0); NEUTROPHILS # (AUTO) 2.1 K/uL (1.8-8.9); NEUTROPHILS % (AUTO) 60.9 % (43.0-81.0); RED BLOOD CELL COUNT(AUTO) 3.09 MIL/uL (4.5-6.0); WHITE BLOOD COUNT (AUTO) 3.5 K/uL (4.3-11.0)
--- NOTE | 2022-03-29 06:45 | NUR ---
RN CLOSING NOTE A/OX4. ROOM AIR. NO RESPIRATORY DISTRESS. MANAGED PAIN WITH MORPHINE. PAIN IN ABDOMEN. ABD IS FIRM AND DISTENDED. IV RUNNING NS. PATIENT IS PENDING PLT TRANSFUSION, [facility] HAS A SHORTAGE OF PLTS. ONCE PLT TRASNFUSION PATIETN IS TO GET A PARACENTESIS. WILL INFORM ONCOMING SHIFT.
[2022-03-29 07:10] LABS: ALBUMIN 2.5 g/dL (3.4-5.0); BILIRUBIN,TOTAL 1.2 mg/dL (0.2-1.0); CREATININE 1.7 mg/dL (0.6-1.3); PHOSPHORUS 4.1 mg/dL (2.5-4.9); POTASSIUM 4.2 mmol/L (3.5-5.1)
--- NOTE | 2022-03-29 07:30 | NUR ---
RN OPENING NOTE PATIENT IS IN BED ON SEMI-HU'S POSITION, AWAKE, ORIENTED X 4, SWEDISH SPEAKING ONLY. ON ROOM AIR WITH OXYGEN SATURATION AT 97%, NOT IN LABORED BREATHING. COMPLAINS OF ABDOMINAL PAIN. WITH LEFT HAND IV LINE INFUSING WITH NS AT 75 CC/HR. BED IS LOCKED IN THE LOWEST POSITION, 3 GUARD RAILS RAISED, CALL MAHMOOD WITHIN REACH, AND ALL HOSPITAL SAFETY PRECAUTIONS ARE IN PLACE. WILL CONTINUE TO MONITOR THROUGHOUT SHIFT.
[2022-03-29] MEDS: BLOOD SUGAR DIAGNOSTIC 1 EACH STRIP IN SCH ×4 (07:55→21:21)
[2022-03-29 07:59] LABS: PLATELET COUNT (AUTO) 38 K/uL (150-450)
[2022-03-29] MEDS: FLUDROCORTISONE 0.1 MG TABLET PO SCH (08:04)
[2022-03-29] MEDS: DOCUSATE SODIUM 100 MG CAPSULE PO SCH (08:04)
[2022-03-29] MEDS: MIDODRINE HCL (5MG) 5 MG TABLET PO SCH ×2 (08:06→16:42)
--- NOTE | 2022-03-29 08:08 | NUR ---
DR. HANNON NOTIFIED PT. PLATELET IS 38 AND PLATELET WAS NOT ISSUED LAST NITE R/T SHORTAGE,ALSO NOTIFIED TO CALL RADIOLOGY AT 6139 IF WANTED IT DONE TODAY
[2022-03-29 08:27] LABS: CALCIUM, SERUM 8.1 mg/dL (8.5-10.1); MAGNESIUM 2.3 mg/dL (1.8-2.4)
--- NOTE | 2022-03-29 08:42 | NUR ---
SPOKE WITH RADIOLOGY AGAIN WILL NOT DO PROCEDURE R/T LOW PLATELET.PER REMBRANT DIRECTOR FROM LAB [facility] WILL NOT RELEASED PLATELET ONLY ON EXTREME EMERGENCY BLEEDING R/T SHORTAGE.PATIENT VSS BUT COMPLAIN OF ABDOMINAL DISCOMFORT R/T ASCITES,DR. HANNON NOTIFIED, ALSO MEHDI DIRECTOR MADE AWAR OF SITUATION,WILL CONTINUE TO FF. UP.PLACED PT ON HIGH BACK REST TO PREVENT PRESSURE RESPIRATORY COLIN.NURSING SUP NOTIFIED
--- NOTE | 2022-03-29 09:13 | NUR ---
PER DR. HANNON RADIOLOGY WILL NOT DO PARACENTESIS R/T LOW PLATELET,WILL NEED TO BE TRANSFERRED FOR HIGHER LEVEL OF CARE.CM AWARE.WILL CONTINUE TO MONITOR.
[2022-03-29] MEDS ORDERED: ALBUMIN 25% 25 GM in PREMIX 1 EA IV ONE (11:00)
--- NOTE | 2022-03-29 11:05 | NUR ---
albumin given per md post paracentesis.
--- NOTE | 2022-03-29 11:26 | NUR ---
pt. tolerated albumin,sbp 80,s awake ,alert seen and examined by dr. weller no new orders,aware of low bp no new orders.
[2022-03-29] MEDS: INSULIN REGULAR, HUMAN 100 UNIT/ML 3 ML VIAL SQ PRN ×3 (12:38→21:24)
--- NOTE | 2022-03-29 12:39 | NUR ---
WILL KEEP TELE OVERNITE PER MD,WILL REMOVE IN AM ONCE BP STABLE.
--- NOTE | 2022-03-29 14:40 | NUR ---
paracentesis output 7900ml per radilology.
[2022-03-29] MEDS: GLUCERNA SHAKE 237 ML CAN PO SCH (17:07)
--- NOTE | 2022-03-29 18:53 | NUR ---
RN CLOSING NOTE PATIENT IS IN BED ON SEMI-HU'S POSITION, AWAKE, ORIENTED X 4, ICELANDIC SPEAKING ONLY. ON ROOM AIR WITH OXYGEN SATURATION AT 97%, NOT IN LABORED BREATHING. DENIES PAIN. WITH LEFT HAND IV INTACT AND PATENT. NOTI N ANY FORM OF DISTRESS. BED IS LOCKED IN THE LOWEST POSITION, 3 GUARD RAILS RAISED, CALL MAHMOOD WITHIN REACH, AND ALL HOSPITAL SAFETY PRECAUTIONS ARE IN PLACE. ALL DUE MEDS GIVEN AND KEPT COMFORTABLE DURING THE SHIFT. WILL ENDORSE TO METAL FLOW COORDINATOR NURSE..
[2022-03-29] MEDS: IV NS 0.9% 1,000 ML IV PRN (23:29)
[2022-03-30] VITALS: BP 103/52
[2022-03-30 04:00] VITALS: BP 92/59
[2022-03-30] MEDS: LACTULOSE 10 G/15 ML UDC (PYXIS) PO SCH ×2 (06:00→17:10)
[2022-03-30] MEDS: BLOOD SUGAR DIAGNOSTIC 1 EACH STRIP IN SCH ×4 (06:27→23:29)
[2022-03-30] MEDS: INSULIN REGULAR, HUMAN 100 UNIT/ML 3 ML VIAL SQ PRN ×2 (06:32→23:29)
[2022-03-30 06:39] LABS: BASOPHILS % (AUTO) 0.5 % (0.0-2.0); EOSINOPHILS % (AUTO) 3.9 % (0.0-6.0); HEMATOCRIT 27 % (39-51); LYMPHOCYTES # (AUTO) 0.5 K/uL (0.8-4.8); LYMPHOCYTES % (AUTO) 14.6 % (20.0-44.0); MEAN CORPUSCULAR HGB CONC 33 g/dl (31.0-36.0); MEAN CORPUSCULAR VOLUME 95 fL (80-96); MONOCYTES # (AUTO) 0.4 K/uL (0.1-1.30); MONOCYTES % (AUTO) 11.4 % (2.0-12.0); NEUTROPHILS # (AUTO) 2.5 K/uL (1.8-8.9); NEUTROPHILS % (AUTO) 69.6 % (43.0-81.0); RED BLOOD CELL COUNT(AUTO) 2.87 MIL/uL (4.5-6.0); WHITE BLOOD COUNT (AUTO) 3.5 K/uL (4.3-11.0)
[2022-03-30 07:10] LABS: ALBUMIN 2.6 g/dL (3.4-5.0); BILIRUBIN,TOTAL 0.9 mg/dL (0.2-1.0); CREATININE 1.5 mg/dL (0.6-1.3); PHOSPHORUS 3.4 mg/dL (2.5-4.9); POTASSIUM 3.5 mmol/L (3.5-5.1); TOTAL PROTEIN, SERUM 5.6 g/dL (6.4-8.2)
[2022-03-30 07:28] LABS: CALCIUM, SERUM 7.7 mg/dL (8.5-10.1); MAGNESIUM 2.3 mg/dL (1.8-2.4)
--- NOTE | 2022-03-30 07:29 | NUR ---
ms rn received on bed, awake,alert,oriented x4,not in any form of distress, respirations even and unlabored,no sob noted, abdomen distended,soft,positive bowel sounds,s/p paracenthesis yesterday w/ 7.9 output, will monitor patient.
[2022-03-30 07:38] LABS: PLATELET COUNT (AUTO) 33 K/uL (150-450)
[2022-03-30 08:00] VITALS: BP 81/51
[2022-03-30] MEDS: GLUCERNA SHAKE 237 ML CAN PO SCH ×3 (08:00→17:11)
--- NOTE | 2022-03-30 08:00 | NUR ---
ms rn was seen by dr. nicole patiño/ orders made and carried out.
[2022-03-30] MEDS: FLUDROCORTISONE 0.1 MG TABLET PO SCH (08:38)
[2022-03-30] MEDS: MIDODRINE HCL (5MG) 5 MG TABLET PO SCH ×2 (08:39→17:10)
[2022-03-30] MEDS: DOCUSATE SODIUM 100 MG CAPSULE PO SCH (08:39)
--- NOTE | 2022-03-30 08:40 | NUR ---
ms rn was seen by dr. rivera, was aware of low b/p and low platelet, no order at this time,
--- NOTE | 2022-03-30 09:00 | NUR ---
ms rn refused breakfast, due meds given,tolerated well.
--- NOTE | 2022-03-30 12:00 | NUR ---
ms rn bs - 137- no coverage given, patient refused lunch at this time.
[2022-03-30] MEDS: IV NS 0.9% 1,000 ML IV PRN (13:29)
[2022-03-30 16:00] VITALS: BP 78/55
--- NOTE | 2022-03-30 17:30 | NUR ---
ms rn bs-147 - no coverage given,patient refused dinner, will monitor patient.
--- NOTE | 2022-03-30 18:00 | NUR ---
ms rn texted dr. rivera for low b/p, no order at this time, patient is on midorine bid, no need per dr. rivera , so w/ low platelet.
[2022-03-30 20:00] VITALS: BP 83/50
--- NOTE | 2022-03-30 20:00 | NUR ---
ms rn notes received pts in bed, awake,alert,oriented x4, v/s stable not in any form of distress, respirations even and unlabored,no sob noted, abdomen noted distended,soft,positive bowel sounds,s/p paracenthesis w/ 7.9 output, with iv f on left hand intact and patent iv fluids of ns at 75cc/hr tolerating well ,will continue to monitor patient.
--- NOTE | 2022-03-30 23:30 | NUR ---
rn notes 155mg/dl; 2 units to be given
[2022-03-31 04:00] VITALS: BP 80/52
[2022-03-31] MEDS: IV NS 0.9% 1,000 ML IV PRN ×2 (05:15→20:42)
[2022-03-31] MEDS: LACTULOSE 10 G/15 ML UDC (PYXIS) PO SCH ×2 (05:26→17:15)
--- NOTE | 2022-03-31 06:52 | NUR ---
ms rn notes Pts remains in bed awake alert and responsive no sob no distress noted on r/a .all needs meet , will endorse to rn day shift for continuity of care.will endorsed to rn day shift for continuity of care
[2022-03-31 07:16] LABS: BASOPHILS % (AUTO) 0.3 % (0.0-2.0); EOSINOPHILS % (AUTO) 4.8 % (0.0-6.0); HEMATOCRIT 26 % (39-51); HEMOGLOBIN 8.6 g/dL (13.5-17.5); LYMPHOCYTES # (AUTO) 0.5 K/uL (0.8-4.8); LYMPHOCYTES % (AUTO) 16.4 % (20.0-44.0); MEAN CORPUSCULAR HGB CONC 33 g/dl (31.0-36.0); MEAN CORPUSCULAR VOLUME 95 fL (80-96); MONOCYTES # (AUTO) 0.3 K/uL (0.1-1.30); MONOCYTES % (AUTO) 10.2 % (2.0-12.0); NEUTROPHILS # (AUTO) 2.2 K/uL (1.8-8.9); NEUTROPHILS % (AUTO) 68.3 % (43.0-81.0); RED BLOOD CELL COUNT(AUTO) 2.75 MIL/uL (4.5-6.0); WHITE BLOOD COUNT (AUTO) 3.2 K/uL (4.3-11.0)
[2022-03-31 07:37] LABS: CALCIUM, SERUM 7.6 mg/dL (8.5-10.1); CREATININE 1.4 mg/dL (0.6-1.3); POTASSIUM 3.8 mmol/L (3.5-5.1)
--- NOTE | 2022-03-31 07:57 | NUR ---
MS RN OPENING NOTE Patient in bed, asleep. A/O x 4, English speaking. On room air, breathing evenly and unlabored. no SOB or s/s of distress noted. IV access on Left hand #20 infusing Ns at 75 ml/hr. Safety precautions in place: bed in low, locked position; siderails up x 2; call light within reach. Will continue to monitor.
[2022-03-31 07:59] LABS: PLATELET COUNT (AUTO) 22 K/uL (150-450)
[2022-03-31 08:00] VITALS: BP 91/50
--- NOTE | 2022-03-31 08:15 | NUR ---
RN NOTE Received critical value of platelet 22, Dr. Grant notified, no new orders. Will continue to monitor patient.
[2022-03-31] MEDS: FLUDROCORTISONE 0.1 MG TABLET PO SCH (08:16)
[2022-03-31] MEDS: DOCUSATE SODIUM 100 MG CAPSULE PO SCH (08:16)
[2022-03-31] MEDS: GLUCERNA SHAKE 237 ML CAN PO SCH ×3 (08:16→17:15)
[2022-03-31] MEDS: MIDODRINE HCL (5MG) 5 MG TABLET PO SCH ×2 (08:17→17:15)
[2022-03-31] MEDS: BLOOD SUGAR DIAGNOSTIC 1 EACH STRIP IN SCH ×4 (08:18→21:39)
[2022-03-31] MEDS: INSULIN REGULAR, HUMAN 100 UNIT/ML 3 ML VIAL SQ PRN ×3 (08:26→21:43)
[2022-03-31 13:07] LABS: EOSINOPHILS % (MANUAL) 3 % (0-4); LYMPHOCYTES % (MANUAL) 16 % (16-48); MONOCYTES % (MANUAL) 9 % (0-11.0); NEUTROPHILS % (MANUAL) 72 (42-76)
--- NOTE | 2022-03-31 13:09 | NUR ---
SS Note: Pt. Is a 57-year-old male who demonstrates adequate insight to the reason for hospitalization. Per EMR, pt[place] Per pt., he slipped on the stairs. Pt. was oriented x3, alert, and cooperative. During interview, pt. was capable of following directions and appeared unkempt. Pt.s speech was at a normal rate and pt.s mood was elevated. Pt. reported no hx of mental health, suicidal ideation, or homicidal ideation. Pt. denies auditory hallucinations, visual hallucinations, paranoia, or delusions. SW explored pt.s substance use, pt. denied that he drinks alcohol. Per EMR, pt. has cirrhosis of the liver and hx of alcohol. Pt. lives with his daughter Summer [[address] [place] [address]]. Pt. reported that daughter is supportive and cares for him as needed. SW offered rehab to pt., and he refused. Per pt., he does not drink. Pt. is ambulatory and is able to care for himself. Plan: SW provided available resources and pt. accepte. Upon discharge, pt. wants to go back home with his daughter [[address] [place] [address]]. Resources Provided: Counseling--Outpatient [facility] [place] [address] [place] [address] [place] [address] (Specializes in in-depth psychotherapy for emotional distress: anxiety, depression, interpersonal conflicts, life transitions, childhood abuse) [facility] [address] [place] [address] (Assist with solving problem marital difficulties, separation & divorce, aging parents, & grief, chronic & terminal illness) [facility] [address] [place] [address] (Deal with loss & grief, anxiety, marital difficulties) [facility] [address], [address] [place] [address] (Provide in-home mental services to people who are incapable of leaving their homes) [facility] [address] [place] [address] [facility] [address] [facility] [place] [address] PSYCHIATRIC OUTPATIENT SERVICES [facility] Partial Hospitalization and Intensive Outpatient Program (Managed Care and [place] Only)[address] [facility] [phone] [facility] Partial Hospitalization and Outpatient [id number] [place], [place] [phone] [facility] [place] [id number] [place], [place] [phone] [facility] Partial Hospitalization and Outpatient [id number] [facility], [phone] Substance Abuse resources provided included: [facility] Substance Abuse Self-Helpline ([facility]) ; [facility] [address] [facility]. [place] [id number] ; [facility] [address] [facility] [address] ; [facility] Rehabilitation Program [address]VA [facility] [address] ; [facility] [address] [facility] [id number] ; [facility] Treatment [facility] [address] [facility] [id number] ; [facility] [place] [address] [facility] [address] ; [facility] Substance Abuse Helpline([facility])-[facility] ; [facility] ; [facility] [place]; [facility] [place]; [facility] [place]; [facility] [place]; [facility] [place]; [facility] [place]; [facility] [place]; [facility], [facility]. [facility] [place]; Alcoholics Anonymous -[facility]; Kn[facility]-Kip[facility]d ; Marijuana Anonymous -[facility]; Narcotics Anonymous www.na.org;
[2022-03-31 16:00] VITALS: BP 91/47
--- NOTE | 2022-03-31 17:47 | NUR ---
RN NOTE Patient's blood glucose is 135, Regular Insulin per sliding scale not given. Patient has poor PO intake.
--- NOTE | 2022-03-31 19:30 | NUR ---
MS RN OPENING NOTE Received patient in bed, A/O x 4, Honduran speaking but can understand Ukrainian. On room air, breathing evenly and unlabored with no SOB or s/s of acute distress noted at this time. IV access noted on left hand #20g infusing NS at 75 ml/hr. All safety measures in place: bed locked in lowest position. Bed alarm on, side rails up x 2. Call light within reach. Will continue to monitor and reasses for any changes.
--- NOTE | 2022-03-31 19:33 | NUR ---
MS RN CLOSING NOTE Patient in bed, resting. A/O x 4, Surinamese speaking. Stable on room air, breathing evenly and unlabored. No SOB or s/s of distress noted. IV access on Left hand #20 infusing Ns at 75 ml/hr. Paracentesis done earlier today with an output of 5950 cc. All needs attended to. Due meds given. Safety precautions in place: bed in low, locked position; siderails up x 2; call light within reach. Will endorse to machinist 2nd shift nurse for TRAVIS.
[2022-04-01] VITALS: BP 88/62
[2022-04-01] MEDS: LACTULOSE 10 G/15 ML UDC (PYXIS) PO SCH ×3 (05:17→17:31)
--- NOTE | 2022-04-01 06:56 | NUR ---
MS RN CLOSING NOTE No significant changes throughout the shift. Pt remained stable and slept most of the night. A/O x 4, Cook Islander speaking only but can understand Gabonese. On room air, tolerating well with no SOB or s/s of acute distress noted. IV access on left hand #20g infusing NS at 75 ml/hr. Kept pt clean, dry and comfortable. All due meds given. All needs attended to. Safety measures implemented: bed locked in lowest position. Bed alarm on, side rails up x 2. Call light within reach. Will endorse to AM shift nurse for payton.
--- NOTE | 2022-04-01 07:00 | NUR ---
RN OPENING NOTE PATIENT LAYING IN BED, A/O X 4, ABLE TO MAKE NEEDS KNOWN. TOLERATING WELL ON ROOM AIR WITH NO SOB OR S/S RESPIRATORY DISTRESS. L HAND # 20 G IV CLEAN, INTACT, AND FLUSHING WELL WITH NS @ 75 ML/HR. SAFETY MEASURES IN PLACE: BED IN LOWEST LOCKED POSITION, SIDE RAILS UP X 2, CALL LIGHT WITHIN REACH. WILL CONTINUE TO MONITOR.
[2022-04-01 07:11] LABS: BASOPHILS % (AUTO) 0.7 % (0.0-2.0); EOSINOPHILS % (AUTO) 5.9 % (0.0-6.0); HEMATOCRIT 28 % (39-51); HEMOGLOBIN 9.2 g/dL (13.5-17.5); LYMPHOCYTES # (AUTO) 0.5 K/uL (0.8-4.8); LYMPHOCYTES % (AUTO) 18.1 % (20.0-44.0); MEAN CORPUSCULAR HGB CONC 33 g/dl (31.0-36.0); MEAN CORPUSCULAR VOLUME 94 fL (80-96); MONOCYTES # (AUTO) 0.3 K/uL (0.1-1.30); MONOCYTES % (AUTO) 11.4 % (2.0-12.0); NEUTROPHILS # (AUTO) 1.8 K/uL (1.8-8.9); NEUTROPHILS % (AUTO) 63.9 % (43.0-81.0); RED BLOOD CELL COUNT(AUTO) 2.95 MIL/uL (4.5-6.0); WHITE BLOOD COUNT (AUTO) 2.8 K/uL (4.3-11.0)
[2022-04-01 07:30] LABS: CALCIUM, SERUM 7.7 mg/dL (8.5-10.1); CREATININE 1.2 mg/dL (0.6-1.3); POTASSIUM 4.1 mmol/L (3.5-5.1)
[2022-04-01 08:00] VITALS: BP 108/48
[2022-04-01] MEDS: BLOOD SUGAR DIAGNOSTIC 1 EACH STRIP IN SCH ×4 (08:14→22:26)
--- NOTE | 2022-04-01 08:17 | NUR ---
RN NOTES RECEIVED CRITICAL LAB OF PLATELET 24. NOTIFIED. NO NEW ORDERS AT THIS TIME.
[2022-04-01 08:19] LABS: PLATELET COUNT (AUTO) 24 K/uL (150-450)
[2022-04-01] MEDS: GLUCERNA SHAKE 237 ML CAN PO SCH ×3 (08:34→16:14)
[2022-04-01] MEDS: DOCUSATE SODIUM 100 MG CAPSULE PO SCH (08:35)
[2022-04-01] MEDS: MIDODRINE HCL (5MG) 5 MG TABLET PO SCH ×2 (08:36→16:50)
[2022-04-01] MEDS: FLUDROCORTISONE 0.1 MG TABLET PO SCH (08:37)
[2022-04-01] MEDS: INSULIN REGULAR, HUMAN 100 UNIT/ML 3 ML VIAL SQ PRN ×5 (08:52→22:30)
[2022-04-01] MEDS: IV NS 0.9% 1,000 ML IV PRN ×2 (10:32→22:31)
[2022-04-01 11:52] LABS: BAND % (MANUAL) 2 % (0.0-5.0); EOSINOPHILS % (MANUAL) 3 % (0-4); LYMPHOCYTES % (MANUAL) 16 % (16-48); MONOCYTES % (MANUAL) 9 % (0-11.0); NEUTROPHILS % (MANUAL) 70 (42-76)
[2022-04-01 16:00] VITALS: BP 124/62
--- NOTE | 2022-04-01 19:00 | NUR ---
RN CLOSING NOTE PATIENT LAYING IN BED, A/O X 4, ABLE TO MAKE NEEDS KNOWN. TOLERATING WELL ON ROOM AIR WITH NO SOB OR S/S RESPIRATORY DISTRESS. L HAND # 20 G IV CLEAN, INTACT, AND FLUSHING WELL WITH NS @ 75 ML/HR. SAFETY MEASURES IN PLACE: BED IN LOWEST LOCKED POSITION, SIDE RAILS UP X 2, CALL LIGHT WITHIN REACH. ALL NEEDS MET. WILL ENDORSE TO ACCOUNT SUPPORT ANALYST FOR TRAVIS.
--- NOTE | 2022-04-01 19:52 | NUR ---
RN NOTE RECEIVED PATIENT IN BED, SLEEPING, AROUSABLE TO NAME AND TOUCH. DENIES CHEST PAIN. BREATHING EVEN AND UNLABORED. TOLERATING ROOM AIR. SKIN WARM AND DRY. NOTED WITH LEFT HAND 20G, CURRENTLY INFUSING NS AT 75 CC/HR. NO INFILTRATION. PATIENT NOTED WITH DISTENDED ABDOMEN. PATIENT DENIES DISCOMFORT. PATIENT STATES HE HAS BEEN USING URINAL TO URINATE. NO CONCERNS AT THIS TIME. BED LOW, IN LOCKED POSITION, CALL LIGHT WITHIN REACH.
[2022-04-01 20:00] VITALS: BP 91/64
[2022-04-02 04:00] VITALS: BP 92/59
[2022-04-02] MEDS: LACTULOSE 10 G/15 ML UDC (PYXIS) PO SCH ×2 (05:21→17:22)
--- NOTE | 2022-04-02 06:28 | NUR ---
RN NOTE ALL DUE MEDS ADMINISTERED. PATIENT WITH NO COMPLAINTS AT THIS TIME. ASSISTED TO THE RESTROOM FOR BM. KEPT CLEAN AND DRY, OFFERED FLUIDS FOR HYDRATION.
[2022-04-02 06:51] LABS: BASOPHILS % (AUTO) 0.4 % (0.0-2.0); EOSINOPHILS % (AUTO) 3.9 % (0.0-6.0); HEMATOCRIT 31 % (39-51); HEMOGLOBIN 10.4 g/dL (13.5-17.5); LYMPHOCYTES # (AUTO) 0.7 K/uL (0.8-4.8); LYMPHOCYTES % (AUTO) 13.1 % (20.0-44.0); MEAN CORPUSCULAR HGB CONC 33 g/dl (31.0-36.0); MEAN CORPUSCULAR VOLUME 94 fL (80-96); MONOCYTES # (AUTO) 0.4 K/uL (0.1-1.30); MONOCYTES % (AUTO) 7.9 % (2.0-12.0); NEUTROPHILS # (AUTO) 4.2 K/uL (1.8-8.9); NEUTROPHILS % (AUTO) 74.7 % (43.0-81.0); RED BLOOD CELL COUNT(AUTO) 3.28 MIL/uL (4.5-6.0); WHITE BLOOD COUNT (AUTO) 5.6 K/uL (4.3-11.0)
[2022-04-02 07:03] LABS: PLATELET COUNT (AUTO) 39 K/uL (150-450)
[2022-04-02] MEDS: BLOOD SUGAR DIAGNOSTIC 1 EACH STRIP IN SCH ×4 (07:31→21:23)
[2022-04-02] MEDS: INSULIN REGULAR, HUMAN 100 UNIT/ML 3 ML VIAL SQ PRN ×2 (07:33→21:27)
--- NOTE | 2022-04-02 07:40 | NUR ---
RN NOTE RECEIVED PATIENT IN BED RESTING ALERT ORIENTED X4 VERBALLY RESPONSIVE ON ROOM AIR O2;99% IV SITE IS ON LEFT FOREARM INTACT PATENT ON IV HYDRATION NS 75CC/HR,SAFETY MEASURE IMPLEMENT, BED IN LOW POSITION AND LOCKED,BED ALARM IS HOME CARE ASSISTANT LIGHT WITHIN REACH, CONTINUE TO MONITOR.
[2022-04-02] MEDS: GLUCERNA SHAKE 237 ML CAN PO SCH ×3 (07:41→17:18)
[2022-04-02 08:01] LABS: CALCIUM, SERUM 7.6 mg/dL (8.5-10.1); CREATININE 1.5 mg/dL (0.6-1.3); POTASSIUM 3.6 mmol/L (3.5-5.1)
[2022-04-02] MEDS: MIDODRINE HCL (5MG) 5 MG TABLET PO SCH ×2 (08:18→17:22)
[2022-04-02] MEDS: DOCUSATE SODIUM 100 MG CAPSULE PO SCH (08:18)
[2022-04-02] MEDS: FLUDROCORTISONE 0.1 MG TABLET PO SCH (08:18)
[2022-04-02 10:09] LABS: EOSINOPHILS % (MANUAL) 4 % (0-4); LYMPHOCYTES % (MANUAL) 13 % (16-48); MONOCYTES % (MANUAL) 7 % (0-11.0); NEUTROPHILS % (MANUAL) 76 (42-76)
[2022-04-02 12:00] VITALS: BP 96/67
[2022-04-02] MEDS: IV NS 0.9% 1,000 ML IV PRN (15:00)
--- NOTE | 2022-04-02 18:52 | NUR ---
RN NOTE PATIENT REMAINS ON ALERT ORIENTED X4 VERBALLY RESPONSIVE NO SOB NOT ACUTE DISTRESS NOTED ON IV HYDRATION NS 75CC/HR IV SITE IS ON LEFT FOREARM INTACT PATENT ALL DUE MEDS GIVEN MD ORDERED,WILL ENDORSE NEXT COMING SHIFT FOR CONTINUATION OF CARE.
--- NOTE | 2022-04-02 19:30 | NUR ---
UNIT STAFFING NEEDS Care endorsed to KANE Flower.
--- NOTE | 2022-04-02 19:49 | NUR ---
MS RN NOTE RECEIVED PATIENT IN BED AWAKE, ALERT AND ORIENTED X4. MALDIVIAN SPEAKING ONLY. DENIES CHEST PAIN. ON RA TOLERATING WELL, BREATHING EVEN AND UNLABORED. SKIN WARM AND DRY. NOTED WITH LEFT FA #20G RUNNING NS AT 75 CC/HR, INFUSING WELL, NO INFILTRATION NOTED. PATIENT NOTED WITH DISTENDED ABDOMEN. PATIENT DENIES DISCOMFORT AT THIS TIME. CALL LIGHT WITHIN REACH, BED IN LOWEST AND LOCKED POSITION, WILL CONTINUE TO MONITOR THROUGHOUT THE SHIFT.
[2022-04-02 20:00] VITALS: BP 91/61
--- NOTE | 2022-04-02 20:30 | NUR ---
RN NOTE RECEIVED PATIENT IN BED, SLEEPING, AROUSABLE TO NAME AND TOUCH. NOT ON TELE MONITORING, DENIES CHEST PAIN. BREATHING EVEN AND UNLABORED. TOLERATING ROOM AIR. HOB SUPINE PER PATIENT REQUEST. SKIN WARM AND DRY. LEFT HAND 20G, CURRENTLY INFUSING NS AT 75 CC/HR. NO INFILTRATION. ABDOMEN APPEARS DISTENDED. DENIES ABDOMINAL DISCOMFORT. RIGHT LOWER ABDOMEN OCCLUSIVE DRESSING INTACT. URINAL AT BEDSIDE. NO CONCERNS AT THIS TIME. BED LOW, IN LOCKED POSITION, CALL LIGHT WITHIN REACH.
[2022-04-03] MEDS: IV NS 0.9% 1,000 ML IV PRN ×2 (00:14→11:33)
[2022-04-03 04:00] VITALS: BP 94/50
[2022-04-03] MEDS: LACTULOSE 10 G/15 ML UDC (PYXIS) PO SCH ×2 (05:52→17:12)
--- NOTE | 2022-04-03 07:38 | NUR ---
RN OPENING NOTES Patient seen comfortably lying in bed, no apparent distress noted, respirations even and unlabored, no shortness of breath, denies any pain or discomfort at this time, no grimacing. Call light left within reach, safety precautions in place, brakes locked, side rails up X 2.
[2022-04-03 08:00] VITALS: BP 90/60
[2022-04-03] MEDS: DOCUSATE SODIUM 100 MG CAPSULE PO SCH (08:06)
[2022-04-03] MEDS: BLOOD SUGAR DIAGNOSTIC 1 EACH STRIP IN SCH ×4 (08:06→22:01)
[2022-04-03] MEDS: GLUCERNA SHAKE 237 ML CAN PO SCH ×4 (08:06→17:24)
[2022-04-03] MEDS: FLUDROCORTISONE 0.1 MG TABLET PO SCH (08:06)
[2022-04-03] MEDS: MIDODRINE HCL (5MG) 5 MG TABLET PO SCH ×2 (08:07→17:13)
[2022-04-03] MEDS: INSULIN REGULAR, HUMAN 100 UNIT/ML 3 ML VIAL SQ PRN ×4 (08:19→22:01)
[2022-04-03 16:36] VITALS: BP 101/58
--- NOTE | 2022-04-03 18:29 | NUR ---
RN CLOSING NOTES Patient lying in bed, no apparent distress noted, no dizziness, no palpitations, no chest pain, breathing even and unlabored, no shortness of breath, denies any pain or discomfort at this time, remained afebrile, no unusual bruising, no s/s of bleeding, no hematuria, no bleeding gums. All medications given per MD order, tolerating well. No s/s of hypo/hyperglycemia at this time, no tremors, insulin given per sliding scale as needed per MD order. Patient has an order for IV fluids (0.9 NS at 75ml/hr), tolerating well and has IV peripheral line on his left forearm patent, intact and flushing well, no redness, no swelling noted, no s/s of infiltration at this time. All needs attended, aspiration precautions rendered, kept clean and dry, safety precautions in place, frequent visual check rendered, brakes locked, side rails up X 2, call light left within reach.
--- NOTE | 2022-04-03 19:30 | NUR ---
RN NOTE PT RECEIVED IN BED. PT IS ON ROOM AIR SHOWING NO S/SX OF RESP DISTRESS/SOB. BREATHING EVEN AND UNLABORED. PT IS ABLE TO AMBULATE WITH ASSISTANCE AND USE BSC. IV ACCESS NOTED ON LEFT FA. LINE FLUSHED, PATENT, AND INTACT WITH NO SIGNS OF INFILTRATION. 0.9% NS RUNNING AT 75 CC/HR. ALL SAFETY MEASURES IMPLEMENTED. CALL LIGHT WITHIN REACH. BED LOCKED AND IN LOWEST POSITION. WILL CONTINUE TO MONITOR AND ASSESS FOR ANY CHANGES DURING SHIFT.
[2022-04-03 20:00] VITALS: BP 133/64
[2022-04-04] MEDS: IV NS 0.9% 1,000 ML IV PRN (00:48)
[2022-04-04 04:00] VITALS: BP 95/70
[2022-04-04] MEDS: LACTULOSE 10 G/15 ML UDC (PYXIS) PO SCH ×2 (05:10→17:50)
--- NOTE | 2022-04-04 06:22 | NUR ---
RN NOTE NO CHANGES IN PT CONDITION DURING SHIFT. PT IS ON ROOM AIR SHOWING NO S/SX OF RESP DISTRESS/SOB. BREATHING EVEN AND UNLABORED. IV ACCESS NOTED ON LEFT FA RUNNING 0.9% NS AT 75 CC/HR. ALL SAFETY MEASURES IMPLEMENTED. ALL DUE MEDS GIVEN ORDERED. PT KEPT CLEAN AND COMFORTABLE. CALL LIGHT WITHIN REACH. BED LOCKED AND IN LOWEST POSITION. WILL ENDORSE TO MORNING SHIFT RN FOR TRAVIS.
[2022-04-04 07:08] LABS: CREATININE 1.2 mg/dL (0.6-1.3); POTASSIUM 3.9 mmol/L (3.5-5.1)
[2022-04-04 07:41] LABS: BASOPHILS % (AUTO) 0.6 % (0.0-2.0); EOSINOPHILS % (AUTO) 4.5 % (0.0-6.0); HEMATOCRIT 29 % (39-51); HEMOGLOBIN 9.7 g/dL (13.5-17.5); LYMPHOCYTES # (AUTO) 0.6 K/uL (0.8-4.8); LYMPHOCYTES % (AUTO) 12.1 % (20.0-44.0); MEAN CORPUSCULAR HGB CONC 33 g/dl (31.0-36.0); MEAN CORPUSCULAR VOLUME 94 fL (80-96); MONOCYTES # (AUTO) 0.6 K/uL (0.1-1.30); MONOCYTES % (AUTO) 10.6 % (2.0-12.0); NEUTROPHILS # (AUTO) 3.8 K/uL (1.8-8.9); NEUTROPHILS % (AUTO) 72.2 % (43.0-81.0); RED BLOOD CELL COUNT(AUTO) 3.12 MIL/uL (4.5-6.0); WHITE BLOOD COUNT (AUTO) 5.2 K/uL (4.3-11.0)
--- NOTE | 2022-04-04 07:50 | NUR ---
RN OPENING NOTE PATIENT AWAKE IN BED RESTING, A/O X4. NO S/S OF PAIN NOTED AT THIS TIME. ON ROOM AIR, NO DISTRESS OR SHORTNESS OF BREATH NOTED. IV ACCESS LFA #20G, INTACT, PATENT AND FLUSHING WELL. FALL AND SAFETY MEASURES IN PLACE, BED ALARM ON BED IN LOW AND LOCK POSITION, CALL LIGHT AND TABLE WITHIN EASY REACH, SIDE RAILS UP X2. WILL CONTINUE TO MONITOR.
[2022-04-04 08:08] LABS: PLATELET COUNT (AUTO) 34 K/uL (150-450)
[2022-04-04] MEDS: BLOOD SUGAR DIAGNOSTIC 1 EACH STRIP IN SCH ×4 (09:01→22:23)
[2022-04-04] MEDS: DOCUSATE SODIUM 100 MG CAPSULE PO SCH (09:01)
[2022-04-04] MEDS: FLUDROCORTISONE 0.1 MG TABLET PO SCH (09:01)
[2022-04-04] MEDS: MIDODRINE HCL (5MG) 5 MG TABLET PO SCH ×2 (09:02→17:51)
[2022-04-04] MEDS: GLUCERNA SHAKE 237 ML CAN PO SCH ×3 (09:03→17:52)
[2022-04-04 12:00] VITALS: BP 99/74
[2022-04-04] MEDS: INSULIN REGULAR, HUMAN 100 UNIT/ML 3 ML VIAL SQ PRN ×2 (12:33→22:23)
[2022-04-04] MEDS: SPIRONOLACTONE 25 MG TABLET PO SCH (14:13)
--- NOTE | 2022-04-04 14:44 | NUR ---
PER MAKEUP ARTISTRY INSTRUCTOR DR. ESQUIVEL DOES NOT WANT TO DO PARACENTESIS WITH LOW PLATELET.[facility] ESQU[facility]EL SPOKE WITH DR. PENNY ALREADY.PT. SIGNED CONSENT.
--- NOTE | 2022-04-04 16:30 | NUR ---
DR. PENNY ORDERED ONE UNIT PLATELET ,ALSO UPDATED PREVIOUS PLATELET NOT GIVEN SINCE [facility] HAS SHORTAGE ON PLATELET
--- NOTE | 2022-04-04 19:25 | NUR ---
RN NOTE PT RECEIVED IN BED. PT IS ON ROOM AIR SHOWING NO S/SX OF RESP DISTRESS/SOB. BREATHING EVEN AND UNLABORED. PT IS A/OX3-4, SLOVAK SPEAKING. IV ACCESS NOTED ON LEFT FA. LINE FLUSHED, PATENT, AND INTACT WITH NO SIGNS OF INFILTRATION. 0.9% NS RUNNING AT 75 CC/HR. ALL SAFETY MEASURES IMPLEMENTED. CALL LIGHT WITHIN REACH. BED LOCKED AND IN LOWEST POSITION. WILL CONTINUE TO MONITOR AND ASSESS FOR ANY CHANGES DURING SHIFT.
--- NOTE | 2022-04-04 19:44 | NUR ---
RN CLOSING NOTE PATIENT AWAKE IN BED RESTING, A/O X4. NO S/S OF PAIN NOTED AT THIS TIME. ON ROOM AIR, NO DISTRESS OR SHORTNESS OF BREATH NOTED. IV ACCESS LFA #20G, INTACT, PATENT AND FLUSHING WELL. ALL SCHEDULE MEDICATIONS ADMINISTERED. FALL AND SAFETY MEASURES IN PLACE, BED ALARM ON BED IN LOW AND LOCK POSITION, CALL LIGHT AND TABLE WITHIN EASY REACH, SIDE RAILS UP X2. WILL ENDORSE TO FUNERAL HOME LOCATION MANAGER.
[2022-04-04 20:00] VITALS: BP 92/58
[2022-04-05] VITALS (8 sets, daily range): BP systolic 81–106; BP diastolic 52–64
--- NOTE | 2022-04-05 01:34 | NUR ---
RN NOTE CALLED LAB FOR 3RD TIME DURING SHIFT TO SEE IF PLATELETS READY. PER LAB, IT IS NOT READY YET AND THEY WILL CALL WHEN IT IS READY. PERSONNEL SCHEDULERKANE ERVIN.
--- NOTE | 2022-04-05 02:20 | NUR ---
RN NOTE SPOKE WITH DR. PEPPER REGARDING PT LOW BP OF 82/52 AND IF OKAY TO ADMINISTER PLATELET TRANSFUSION. PER DR. BARAJAS, OKAY TO ADMINISTER PLATELET TRANSFUSION AND IF SBP <90 AT END OF PLATELET TRANSFUSION, ADMINISTER ONE TIME DOSE OF MIDODRINE 10 MG. ORDER NOTED AND CARRIED OUT.
--- NOTE | 2022-04-05 02:36 | NUR ---
RN NOTE PLATELET TRANSFUSION INITIATED. WILL CONTINUE TO MONITOR FOR ANY ADVERSE REACTIONS.
--- NOTE | 2022-04-05 03:21 | NUR ---
RN NOTE PT TOLERATING PLATELET TRANSFUSION WITH NO ADVERSE REACTIONS NOTED. LATEST BP NOW 91/63. WILL CONTINUE TO MONITOR FOR ANY CHANGES.
--- NOTE | 2022-04-05 04:30 | NUR ---
RN NOTE PLATELET TRANSFUSION COMPLETED. NO ADVERSE REACTIONS NOTED. POST TRANSFUSION BP 99/63. WILL CONTINUE TO MONITOR.
[2022-04-05] MEDS: MORPHINE SULFATE INJ 2 MG/ML DISP.SYRIN IV PRN (04:31)
[2022-04-05] MEDS: IV NS 0.9% 1,000 ML IV PRN ×2 (04:47→18:40)
[2022-04-05] MEDS: LACTULOSE 10 G/15 ML UDC (PYXIS) PO SCH ×2 (05:39→17:14)
[2022-04-05 06:36] LABS: BASOPHILS % (AUTO) 0.1 % (0.0-2.0); EOSINOPHILS % (AUTO) 0.5 % (0.0-6.0); HEMATOCRIT 24 % (39-51); HEMOGLOBIN 7.9 g/dL (13.5-17.5); LYMPHOCYTES # (AUTO) 0.8 K/uL (0.8-4.8); LYMPHOCYTES % (AUTO) 8.7 % (20.0-44.0); MEAN CORPUSCULAR HGB CONC 33 g/dl (31.0-36.0); MEAN CORPUSCULAR VOLUME 95 fL (80-96); MONOCYTES # (AUTO) 1.1 K/uL (0.1-1.30); MONOCYTES % (AUTO) 11.4 % (2.0-12.0); NEUTROPHILS # (AUTO) 7.5 K/uL (1.8-8.9); NEUTROPHILS % (AUTO) 79.3 % (43.0-81.0); PLATELET COUNT (AUTO) 80 K/uL (150-450); RED BLOOD CELL COUNT(AUTO) 2.52 MIL/uL (4.5-6.0); WHITE BLOOD COUNT (AUTO) 9.4 K/uL (4.3-11.0)
--- NOTE | 2022-04-05 06:50 | NUR ---
RN NOTE NO CHANGES IN PT CONDITION DURING SHIFT. PT IS ON ROOM AIR SHOWING NO S/SX OF RESP DISTRESS/SOB. BREATHING EVEN AND UNLABORED. IV ACCESS NOTED ON LEFT FA RUNNING 0.9% NS AT 75 CC/HR. ONE UNIT OF PLATELETS TRANSFUSED WITH NO ADVERSE REACTIONS NOTED. ALL SAFETY MEASURES IMPLEMENTED. ALL DUE MEDS GIVEN ORDERED. PT KEPT CLEAN AND COMFORTABLE. CALL LIGHT WITHIN REACH. BED LOCKED AND IN LOWEST POSITION. WILL ENDORSE TO MORNING SHIFT RN FOR TRAVIS.
[2022-04-05 07:22] LABS: CALCIUM, SERUM 7.9 mg/dL (8.5-10.1); CREATININE 1.5 mg/dL (0.6-1.3); POTASSIUM 4.7 mmol/L (3.5-5.1)
--- NOTE | 2022-04-05 07:57 | NUR ---
RN OPENING NOTE PATIENT AWAKE IN BED RESTING, A/O X4. NO S/S OF PAIN NOTED AT THIS TIME. ON ROOM AIR, NO DISTRESS OR SHORTNESS OF BREATH NOTED. IV ACCESS LFA #20G, INTACT, PATENT AND FLUSHING WELL WITH 0.9NS INFUSING AT 75 ML/HR. FALL AND SAFETY MEASURES IN PLACE, BED ALARM ON BED IN LOW AND LOCK POSITION, CALL LIGHT AND TABLE WITHIN REACH, SIDE RAILS UP X2. WILL CONTINUE TO MONITOR.
--- NOTE | 2022-04-05 08:00 | NUR ---
RN NOTE PLATELET RESULT RELAYED TO MD AT BEDSIDE AND ORDERED PARACENTESIS. CALLED RADIOLOGY DEPARTMENT FOR THE PROCEDURE, THEY WILL CALL BACK ONCE ELECTRONICS ENGINEERING MANAGER IS AVAILABLE.
[2022-04-05] MEDS: INSULIN REGULAR, HUMAN 100 UNIT/ML 3 ML VIAL SQ PRN ×4 (08:19→22:27)
[2022-04-05] MEDS: BLOOD SUGAR DIAGNOSTIC 1 EACH STRIP IN SCH ×4 (08:24→22:27)
[2022-04-05] MEDS: MIDODRINE HCL (5MG) 5 MG TABLET PO SCH ×2 (08:26→17:14)
[2022-04-05] MEDS: SPIRONOLACTONE 25 MG TABLET PO SCH (08:27)
[2022-04-05] MEDS: FLUDROCORTISONE 0.1 MG TABLET PO SCH (08:27)
[2022-04-05] MEDS: DOCUSATE SODIUM 100 MG CAPSULE PO SCH (08:27)
[2022-04-05] MEDS: GLUCERNA SHAKE 237 ML CAN PO SCH ×3 (08:35→17:03)
[2022-04-05 09:07] LABS: BAND % (MANUAL) 1 % (0.0-5.0); EOSINOPHILS % (MANUAL) 1 % (0-4); LYMPHOCYTES % (MANUAL) 4 % (16-48); MONOCYTES % (MANUAL) 5 % (0-11.0); NEUTROPHILS % (MANUAL) 89 (42-76)
--- NOTE | 2022-04-05 10:12 | NUR ---
RN NOTE CONSENT FOR PARACENTESIS SIGNED. ANDREW FROM RADIOLOGY DEPARTMENT CALLED TO CONFIRM THAT TECH WILL BE AVAILABLE TO PERFORM PARACENTESIS TODAY 04/05/2022 AT 1300.
--- NOTE | 2022-04-05 14:09 | NUR ---
RN NOTE PARACENTESIS PERFORMED AT BEDSIDE WITH 8.3 LITERS OUTPUT PER FLOUR TESTER.
--- NOTE | 2022-04-05 17:47 | NUR ---
RN NOTE PT TRANSFERRED TO 114-1 WITH PERSONAL BELONGINGS. PT ORIENTED TO ROOM, USE OF CALL MAHMOOD. PT ALERT AND ORIENTED X3. PATIENT TOLERATED TRANSFER WELL.
--- NOTE | 2022-04-05 18:33 | NUR ---
RN NOTE PT IS ON ROOM AIR SHOWING NO S/SX OF RESP DISTRESS. BREATHING EVEN AND UNLABORED. IV ACCESS ON LEFT FA INFUSING WELL WITH 0.9% NS AT 75 CC/HR. ALL SAFETY MEASURES IMPLEMENTED. ALL DUE MEDS GIVEN ORDERED. PT KEPT CLEAN AND COMFORTABLE. CALL LIGHT WITHIN REACH. BED LOCKED AND IN LOWEST POSITION. WILL ENDORSE TO NEXT NURSE ON DUTY FOR TRAVIS.
--- NOTE | 2022-04-05 19:10 | NUR ---
RN NOTES RECEIVED CARE OF PATIENT FROM AM NURSE, AWAKE, A/O X4, ITALIAN SPEAKING, ABLE TO MAKE NEEDS KNOWN. PATIENT REPOSITIONED FOR COMFORT. PATIENT ON ROOM AIR, O2 SAT 96%, NO SOB NOTED. NO SIGNIFICANT FINDINGS UPON INITIAL NURSING ASSESSMENTS. IV ACCESS ON LEFT FA INFUSING WELL WITH 0.9% NS AT 75 CC/HR. SAFETY MEASURES IMPLEMENTED. CALL LIGHT WITHIN REACH. BED LOCKED AND IN LOWEST POSITION. WILL CONTINUE TO MONITOR.
[2022-04-06 04:00] VITALS: BP 110/70
[2022-04-06] MEDS: LACTULOSE 10 G/15 ML UDC (PYXIS) PO SCH ×2 (06:08→18:09)
--- NOTE | 2022-04-06 06:22 | NUR ---
RN CLOSING NOTES WILL ENDORSE CARE OF PATIENT TO AM NURSE. NO SIGNIFICANT FINDINGS UPON ALL NURSING ASSESSMENTS. ALL PATIENT NEEDS MET THOUGHT SHIFT. ALL DUE MEDS GIVEN. SAFETY MEASURES KEPT IN PLACE. WILL ENDORSE TO AM NURSE FOR TRAVIS.
[2022-04-06] MEDS: IV NS 0.9% 1,000 ML IV PRN ×2 (06:46→21:57)
--- NOTE | 2022-04-06 07:30 | NUR ---
RN OPENING NOTE PATIENT IS IN BED, AWAKE, ALERT, ORIENTED X 4, TUVALUAN SPEAKING ONLY BUT TRANSLATION C/O IVETT FLOWERS. ON ROOM AIR WITH OXYGEN SATURATION AT 96%. WITH LEFT FOREARM GAUGE 20 INFUSING WITH NS AT 75 ML/HR, AND WITH NO SIGNS OF INFIILTRATION OR PHLEBITIS NOTED. NOT IN ANY FORM OF DISTRESS. BED IS LOCKED IN LOWEST POSITION, 3 SIDE RAILS UP, CALL LIGHT WITHIN REACH. WILL CONTINUE TO MONITOR THROUGHOUT SHIFT.
[2022-04-06] MEDS: BLOOD SUGAR DIAGNOSTIC 1 EACH STRIP IN SCH ×4 (07:50→22:08)
[2022-04-06 08:00] VITALS: BP 85/48
[2022-04-06] MEDS: INSULIN REGULAR, HUMAN 100 UNIT/ML 3 ML VIAL SQ PRN ×4 (08:01→22:08)
[2022-04-06] MEDS: GLUCERNA SHAKE 237 ML CAN PO SCH ×3 (08:05→17:32)
[2022-04-06] MEDS: MIDODRINE HCL (5MG) 5 MG TABLET PO SCH ×2 (08:56→17:37)
[2022-04-06] MEDS: SPIRONOLACTONE 25 MG TABLET PO SCH (08:56)
[2022-04-06] MEDS: FLUDROCORTISONE 0.1 MG TABLET PO SCH (08:56)
[2022-04-06] MEDS: DOCUSATE SODIUM 100 MG CAPSULE PO SCH (08:56)
[2022-04-06 09:35] LABS: BASOPHILS % (AUTO) 0.1 % (0.0-2.0); EOSINOPHILS % (AUTO) 0.7 % (0.0-6.0); HEMATOCRIT 23 % (39-51); HEMOGLOBIN 7.7 g/dL (13.5-17.5); LYMPHOCYTES # (AUTO) 0.5 K/uL (0.8-4.8); LYMPHOCYTES % (AUTO) 9.2 % (20.0-44.0); MEAN CORPUSCULAR HGB CONC 33 g/dl (31.0-36.0); MEAN CORPUSCULAR VOLUME 96 fL (80-96); MONOCYTES # (AUTO) 0.6 K/uL (0.1-1.30); MONOCYTES % (AUTO) 11.7 % (2.0-12.0); NEUTROPHILS % (AUTO) 78.3 % (43.0-81.0); RED BLOOD CELL COUNT(AUTO) 2.41 MIL/uL (4.5-6.0); WHITE BLOOD COUNT (AUTO) 5.1 K/uL (4.3-11.0)
[2022-04-06 09:47] LABS: PLATELET COUNT (AUTO) 33 K/uL (150-450)
[2022-04-06 09:51] LABS: CREATININE 1.5 mg/dL (0.6-1.3); MAGNESIUM 1.8 mg/dL (1.8-2.4); POTASSIUM 4.1 mmol/L (3.5-5.1); TOTAL PROTEIN, SERUM 4.9 g/dL (6.4-8.2)
[2022-04-06 10:08] LABS: CALCIUM, SERUM 7.6 mg/dL (8.5-10.1)
[2022-04-06] MEDS ORDERED: ALBUMIN 5% 25 GM in PREMIX 1 EA IV ONE (10:30)
[2022-04-06] MEDS ORDERED: ALBUMIN 25% 25 GM in PREMIX 1 EA IV ONE ×2 (11:00→12:30)
[2022-04-06 12:00] VITALS: BP 91/54
--- NOTE | 2022-04-06 18:52 | NUR ---
RN CLOSING NOTE PATIENT IS IN BED, AWAKE, ALERT, ORIENTED X 4, ON ROOM AIR WITH OXYGEN SATURATION AT 96%. WITH LEFT FOREARM GAUGE 20 INFUSING WITH NS AT 75 ML/HR, AND WITH NO SIGNS OF INFIILTRATION OR PHLEBITIS NOTED. NOT IN ANY FORM OF DISTRESS. PATIENT REMAINED STABLE THROUGHOUT SHIFT. BED IS LOCKED IN LOWEST POSITION, 3 SIDE RAILS UP, CALL LIGHT WITHIN REACH. WILL ENDORSE TO APARTMENT COMMUNITY ASSISTANT MANAGER NURSE.
--- NOTE | 2022-04-06 19:45 | NUR ---
RN OPENING NOTE RECEIVED PATIENT WITH EYES CLOSED, EASY TO AROUSE. NO S/S OF APPARENT DISTRESS ON ROOM AIR. NO C/O PAIN AT THIS TIME. PATIENT L. FA IV ACCESS RUNNING IV NS @75MLS/HR. NO NEEDS AT THIS TIME. SAFETY IN PLACE. WILL CONTINUE WITH PLAN OF CARE FOR PATIENT.
[2022-04-06 20:00] VITALS: BP 85/50
[2022-04-06 20:30] VITALS: BP 89/56
--- NOTE | 2022-04-06 20:30 | NUR ---
bp re-check 89/56. it was endorsed to me already that patient runs in the low side. Patient fully alert. Encouraged to eat but patient refused. will continue to monitor.
[2022-04-07] MEDS: MORPHINE SULFATE INJ 2 MG/ML DISP.SYRIN IV PRN (03:40)
--- NOTE | 2022-04-07 03:43 | NUR ---
MS RN NOTE PATIENT C/O 9/10 PAIN IN THE ABDOMEN. BP 91/59 HR 101. GIVEN MORPHINE PRN AT THIS TIME. WILL RE-ASSESS.
[2022-04-07 04:00] VITALS: BP 91/59
[2022-04-07 06:24] LABS: ALBUMIN 2.1 g/dL (3.4-5.0); BILIRUBIN,TOTAL 0.9 mg/dL (0.2-1.0); CALCIUM, SERUM 7.4 mg/dL (8.5-10.1); CREATININE 1.4 mg/dL (0.6-1.3); MAGNESIUM 1.6 mg/dL (1.8-2.4); PHOSPHORUS 2.8 mg/dL (2.5-4.9); POTASSIUM 3.4 mmol/L (3.5-5.1); TOTAL PROTEIN, SERUM 4.6 g/dL (6.4-8.2)
[2022-04-07] MEDS: LACTULOSE 10 G/15 ML UDC (PYXIS) PO SCH ×2 (06:30→17:09)
--- NOTE | 2022-04-07 06:49 | NUR ---
MS RN CLOSING NOTE PATIENT IN BED, A/OX4. NO S/S OF APPARENT DISTRESS ON ROOM AIR. PAIN MANAGED WITH MEDICATION-- NO C/O PAIN AT THIS TIME. IV NS RUNNING @75MLS/HR. ALL NEEDS ATTENDED. ALL SCHEDULED MEDICATION ADMINISTERED. ENCOURAGED PO INTAKE-- PATIENT HAD 2 JELLOS AND A LOT OF WATER. ABDOMEN DISTENDED. SAFETY KEPT IN PLACE THE WHOLE SHIFT. WILL ENDORSE TO MORNING SHIFT RN FOR CONTINUITY OF CARE.
--- NOTE | 2022-04-07 07:30 | NUR ---
RN OPENING NOTES RECEIVED PATIENT AWAKE ON BED. A/O X4, ON ROOM AIR, TOLERATING WELL, NO SOB NOTED,, NOT IN DISTRESS, WITH COMPLAINTS OF TOLERABLE PAIN IN THE ABDOMEN, COMFORT MEASURES PROVIDED. WITH IV ACCESS ON LFA G#20 WITH IVF NS AT 75 ML/HR, INFUSING WELL. ALL SAFETY PRECAUTIONS IN PLACE, BED ON LOWEST LOCK POSITION, WITH CALL LIGHT WITHIN REACH. WILL CONTINUE TO MONITOR.
[2022-04-07 08:23] LABS: BASOPHILS % (AUTO) 0.1 % (0.0-2.0); EOSINOPHILS % (AUTO) 3.1 % (0.0-6.0); HEMATOCRIT 23 % (39-51); HEMOGLOBIN 7.4 g/dL (13.5-17.5); LYMPHOCYTES # (AUTO) 0.5 K/uL (0.8-4.8); LYMPHOCYTES % (AUTO) 11.4 % (20.0-44.0); MEAN CORPUSCULAR HGB CONC 33 g/dl (31.0-36.0); MEAN CORPUSCULAR VOLUME 96 fL (80-96); MONOCYTES # (AUTO) 0.6 K/uL (0.1-1.30); MONOCYTES % (AUTO) 13.5 % (2.0-12.0); NEUTROPHILS # (AUTO) 3.4 K/uL (1.8-8.9); NEUTROPHILS % (AUTO) 71.9 % (43.0-81.0); RED BLOOD CELL COUNT(AUTO) 2.34 MIL/uL (4.5-6.0); WHITE BLOOD COUNT (AUTO) 4.7 K/uL (4.3-11.0)
[2022-04-07 08:32] LABS: PLATELET COUNT (AUTO) 37 K/uL (150-450)
[2022-04-07] MEDS: BLOOD SUGAR DIAGNOSTIC 1 EACH STRIP IN SCH ×4 (08:58→22:02)
[2022-04-07] MEDS: FLUDROCORTISONE 0.1 MG TABLET PO SCH (09:03)
[2022-04-07] MEDS: DOCUSATE SODIUM 100 MG CAPSULE PO SCH (09:03)
[2022-04-07] MEDS: GLUCERNA SHAKE 237 ML CAN PO SCH ×3 (09:03→16:21)
[2022-04-07] MEDS: SPIRONOLACTONE 25 MG TABLET PO SCH (09:03)
[2022-04-07] MEDS: MIDODRINE HCL (5MG) 5 MG TABLET PO SCH ×3 (09:06→16:53)
[2022-04-07] MEDS: INSULIN REGULAR, HUMAN 100 UNIT/ML 3 ML VIAL SQ PRN ×2 (09:14→22:03)
[2022-04-07] MEDS ORDERED: MAGNESIUM OXIDE 400 MG TABLET PO ONE (10:00)
[2022-04-07] MEDS ORDERED: POTASSIUM CHLORIDE 20 MEQ TAB.PRT.SR PO SCH (10:00)
[2022-04-07 12:00] VITALS: BP 88/57
--- NOTE | 2022-04-07 18:38 | NUR ---
RN CLOSING NOTE PATIENT IS IN BED, AWAKE, ALERT, ORIENTED X 4, ON ROOM AIR WITH OXYGEN SATURATION AT 96%. IVF ON LEFT FOREARM GAUGE 20 WITH NS INFUSING AT 75 ML/HR, AND WITH NO SIGNS OF INFIILTRATION OR PHLEBITIS NOTED. NOT IN ANY FORM OF DISTRESS. PATIENT REMAINED STABLE THROUGHOUT SHIFT. BED IS LOCKED IN LOWEST POSITION, 3 SIDE RAILS UP, CALL LIGHT WITHIN REACH. WILL ENDORSE TO NEXT NURSE ON DUTY FOR CONTINUITY OF CARE.
[2022-04-07 20:00] VITALS: BP 80/54
--- NOTE | 2022-04-07 20:02 | NUR ---
RN OPENING NOTES RECEIVED PT IN BED, AWAKE. AOx4, AZERI SPEAKING AND ABLE TO MAKE NEEDS KNOWN. ON RA AND TOLERATING WELL. NO SOB NOTED. NO S/SX OF RESPIRATORY DISTRESS NOTED. IV ACCESS IN LFA #20 G RUNNING NS @ 75 ML/HR. SAFETY PRECAUTIONS IN PLACE: BED IN LOWEST, LOCKED POSITION, SIDERAILS UPx2, AND BRAKES ON. TABLE AND CALL LIGHT WITHIN REACH. WILL CONTINUE TO MONITOR.
[2022-04-07] MEDS: IV NS 0.9% 1,000 ML IV PRN (20:43)
[2022-04-08] MEDS: LACTULOSE 10 G/15 ML UDC (PYXIS) PO SCH ×3 (05:33→17:22)
--- NOTE | 2022-04-08 05:39 | NUR ---
RN NOTES PT REFUSED LACTULOSE SAID "IT DOESN'T EVEN DO WHAT IT'S SUPPOSED TO DO." EDUCATED PATIENT ON MEDICATION AND PROS AND CONS. STILL REFUSED AND SAID HE WOULDN'T TAKE IT.
--- NOTE | 2022-04-08 06:41 | NUR ---
RN CLOSING NOTES PT IN BED, ASLEEP. AWAKENS TO VERBAL STIMULI. AOx4, SETSWANA SPEAKING AND ABLE TO MAKE NEEDS KNOWN. ON RA AND TOLERATING WELL. NO SOB NOTED. NO S/SX OF RESPIRATORY DISTRESS NOTED. IV ACCESS IN LFA #20 G RUNNING NS @ 75 ML/HR. ALL ORDERS CARRIED OUT. ALL NEEDS MET. PT KEPT CLEAN AND DRY. SAFETY PRECAUTIONS IN PLACE: BED IN LOWEST, LOCKED POSITION, SIDERAILS UPx2, AND BRAKES ON. TABLE AND CALL LIGHT WITHIN REACH. WILL ENDORSE TO ONCOMING SHIFT FOR TRAVIS.
--- NOTE | 2022-04-08 07:22 | NUR ---
RN OPENING NOTES RECEIVED PATIENT IN BED, AWAKE, A/O X4, VERBALLY RESPONSIVE. NO SIGNS OF AUTE DISTRESS NOTED. ON ROOM AIR, NO SOB NOTED, BREATHING EVEN AND UNLABORED. NOTED WITH IV ACCESS ON LEFT FORE ARM #20G, INTACT AND PATENT, WITH NS @ 75ML/HR RUNNING. NO C/O PAIN AT THIS TIME. SAFETY MEASURE IN PLACE. BED IN LOWEST AND LOCKED POSITION, SIDE RAILS UP X2, CALL LIGHT PLACED WITHIN EASY REACH. WILL CONTINUE TO MONITOR PATIENT.
[2022-04-08] MEDS: BLOOD SUGAR DIAGNOSTIC 1 EACH STRIP IN SCH ×4 (07:51→22:12)
[2022-04-08] MEDS: GLUCERNA SHAKE 237 ML CAN PO SCH ×3 (08:14→17:07)
[2022-04-08] MEDS: FLUDROCORTISONE 0.1 MG TABLET PO SCH (08:14)
[2022-04-08] MEDS: DOCUSATE SODIUM 100 MG CAPSULE PO SCH (08:14)
[2022-04-08] MEDS: MIDODRINE HCL (5MG) 5 MG TABLET PO SCH ×3 (08:14→16:07)
[2022-04-08] MEDS: SPIRONOLACTONE 25 MG TABLET PO SCH (08:15)
[2022-04-08] MEDS: INSULIN REGULAR, HUMAN 100 UNIT/ML 3 ML VIAL SQ PRN ×4 (08:20→22:13)
[2022-04-08] MEDS: IV NS 0.9% 1,000 ML IV PRN ×2 (10:30→23:55)
[2022-04-08 12:00] VITALS: BP 86/60
--- NOTE | 2022-04-08 18:45 | NUR ---
RN CLOSING NOTES PATIENT IN BED, AWAKE, A/O X4, VERBALLY RESPONSIVE. NO SIGNS OF ACUTE DISTRESS NOTED. REMAINS STABLE ON ROOM AIR, NO SOB NOTED, BREATHING EVEN AND UNLABORED. IV ACCESS ON LEFT FORE ARM #20G, INTACT AND PATENT, WITH NS @ 75ML/HR RUNNING. DENIES ANY PAIN AT THIS TIME. ALL DUE MEDS GIVEN, TOLERATED WELL. NEEDS ATTENDED TO. SAFETY MEASURES MAINTAINED. BED IN LOWEST AND LOCKED POSITION, SIDE RAILS UP X2, CALL LIGHT PLACED WITHIN EASY REACH. WILL ENDORSE TO NEXT SHIFT FOR CONTINUITY OF CARE.
--- NOTE | 2022-04-08 19:10 | NUR ---
RN OPENING NOTES RECEIVED PATIENT ON BED, ALERT AND VERBALLY RESPONSIVE, A/O x 4, VIETNAMESE SPEAKING, ON ROOM AIR SATING AT 98%, RESPIRATORY EVEN AND UNLABORED, NO SOB NOTED, NOT IN ACUTE DISTRESS. REMAIN AFEBRILE. NOTED WITH LEFT FOREARM #20 IV LINE, PATENT, INTACT. FLUSHED WITH NS, NO S/S OF INFILTRATION NOTED AT SITE. RUNNING WITH NS @ 75 ML/HR. ALL SAFETY MEASURE PROVIDED. BED IN LOWEST POSITION, LOCKED. BED ALARM ARMED. CALL LIGHT WITH IN REACH. CONTINUE TO MONITOR.
[2022-04-08 20:00] VITALS: BP 90/52
--- NOTE | 2022-04-08 22:00 | NUR ---
RN NOTES BP CHECKED, OBTAINED 95/53, PULSE- 86
--- NOTE | 2022-04-08 22:13 | NUR ---
RN NOTES BLOOD SUGAR 129 mg/dL, NO INSULIN COVERAGE PER SLIDING SCALE. NO S/S OF HYPO/HYPERGLYCEMIA NOTED
[2022-04-09 04:00] VITALS: BP 90/62
[2022-04-09] MEDS: LACTULOSE 10 G/15 ML UDC (PYXIS) PO SCH ×2 (05:28→17:00)
--- NOTE | 2022-04-09 07:01 | NUR ---
RN NOTES PATIENT REMAIN STABLE THROUGH THE SHIFT. RESPIRATORY EVEN AND UNLABORED, NO SOB NOTED, NOT IN ACUTE DISTRESS. REMAIN AFEBRILE. RUNNING WITH NS @ 75 ML/HR. ALL DUE MEDS GIVEN ORDERED. ALL SAFETY MEASURE PROVIDED. BED IN LOWEST POSITION, LOCKED. BED ALARM ARMED. CALL LIGHT WITH IN REACH. REPORT GIVEN TO MORNING SHIFT NURSE.
--- NOTE | 2022-04-09 07:52 | NUR ---
MS RN NOTE PATIENT IN BED ,ALERT ORIENTED, LT FA HL INTACT, ON IVF ORDERED , OFFERED TO EAT BREAKFAST STATED DONT WANT AT THIS TIME MAY BE LATTER ON , ON RA NO SOB NOTED AT THIS TIME, ABDOMEN SOFT BUT DISTENDED, BED IN LOWEST AND LOCKED POSITION, CALL .LIGHT WITHIN REACH
[2022-04-09 08:00] VITALS: BP 89/59
[2022-04-09] MEDS: FLUDROCORTISONE 0.1 MG TABLET PO SCH (08:41)
[2022-04-09] MEDS: DOCUSATE SODIUM 100 MG CAPSULE PO SCH (08:41)
[2022-04-09] MEDS: MIDODRINE HCL (5MG) 5 MG TABLET PO SCH ×3 (08:41→16:21)
[2022-04-09] MEDS: SPIRONOLACTONE 25 MG TABLET PO SCH (08:41)
[2022-04-09] MEDS: GLUCERNA SHAKE 237 ML CAN PO SCH ×3 (08:42→16:13)
[2022-04-09] MEDS: BLOOD SUGAR DIAGNOSTIC 1 EACH STRIP IN SCH ×4 (08:44→22:52)
--- NOTE | 2022-04-09 10:30 | NUR ---
MS RN NOTE DR PENNY AT BEDSIDE AWARE THAT ABDOMEN IS DISTENDED AND HAS POOR APPETITE, BP 89/59
[2022-04-09] MEDS: IV NS 0.9% 1,000 ML IV PRN (10:59)
[2022-04-09 12:34] VITALS: BP 90/60
--- NOTE | 2022-04-09 13:00 | NUR ---
MS RN NOTE PATIENT IN THE BED AWAKE AND ALERT STILL REFUSING TO EAT WILL ENCOURAGED PT TO EAT, ON ROOM AIRN NO SOB NOTED KEPT CLEAN AND DRY IV L FOREARM INTACT AND FLUSH WELL ON IV FLUID ORDERED ABDOMEN STILL DISTENDED REPOSITIONED CALL LIGHT IN REACH WILL CONTINUE TO MONITOR
[2022-04-09 16:00] VITALS: BP 94/66
[2022-04-09] MEDS: INSULIN REGULAR, HUMAN 100 UNIT/ML 3 ML VIAL SQ PRN ×2 (17:03→22:53)
--- NOTE | 2022-04-09 19:25 | NUR ---
RN NOTE RECEIVED PT IN BED. PT IS ON ROOM AIR SHOWING NO S/SX OF RESP DISTRESS. BREATHING EVEN AND UNLABORED. NO S/SX OF RESP DISTRESS. PT IS AOX3-4, BELARUSIAN SPEAKING. IV ACCESS NOTED ON LEFT FA #20 RUNNING NS AT 75 CC/HR. LINE FLUSHED, PATENT, AND INTACT WITH NO INFILTRATION. ALL SAFETY MEASURES IMPLEMENTED. HOB ELEVATED. CALL LIGHT WITHIN REACH. BED LOCKED AND IN LOWEST POSITION. SIDE RAILS UP. WILL CONTINUE TO MONITOR AND ASSESS FOR ANY CHANGES DURING SHIFT.
[2022-04-09 20:00] VITALS: BP 94/61
--- NOTE | 2022-04-09 20:54 | NUR ---
RN NOTE SPOKE WITH DR. OGLESBY REGARDING NO LABS DRAWN SINCE 04/07 WITH 04/07 POTASSIUM BEING 3.4, HEMOGLOBIN BEING 7.4, PLATELETS BEING 48660, AND SODIUM BEING 133. ASKED DR. OGLESBY IF SHE WOULD LIKE TO DO STAT CBC/BMP WITH LABS DRAWN AGAIN IN AM, PER RENY PUT BMP/CBC FOR ONLY MORNING. ORDER NOTED.
[2022-04-10] MEDS: IV NS 0.9% 1,000 ML IV PRN (01:24)
[2022-04-10 04:00] VITALS: BP 86/59
[2022-04-10] MEDS: LACTULOSE 10 G/15 ML UDC (PYXIS) PO SCH ×2 (05:13→18:40)
[2022-04-10 06:29] LABS: BASOPHILS % (AUTO) 0.1 % (0.0-2.0); EOSINOPHILS % (AUTO) 3.5 % (0.0-6.0); HEMATOCRIT 25 % (39-51); HEMOGLOBIN 8.1 g/dL (13.5-17.5); MEAN CORPUSCULAR HGB CONC 33 g/dl (31.0-36.0); MEAN CORPUSCULAR VOLUME 96 fL (80-96); MONOCYTES # (AUTO) 1.1 K/uL (0.1-1.30); MONOCYTES % (AUTO) 11.4 % (2.0-12.0); NEUTROPHILS # (AUTO) 7.3 K/uL (1.8-8.9); PLATELET COUNT (AUTO) 51 K/uL (150-450); RED BLOOD CELL COUNT(AUTO) 2.56 MIL/uL (4.5-6.0); WHITE BLOOD COUNT (AUTO) 9.7 K/uL (4.3-11.0)
[2022-04-10 06:39] LABS: CALCIUM, SERUM 7.6 mg/dL (8.5-10.1); CREATININE 1.5 mg/dL (0.6-1.3); POTASSIUM 3.6 mmol/L (3.5-5.1)
[2022-04-10] MEDS: GLUCERNA SHAKE 237 ML CAN PO SCH ×3 (07:56→17:00)
[2022-04-10 08:00] VITALS: BP 92/59
[2022-04-10] MEDS: BLOOD SUGAR DIAGNOSTIC 1 EACH STRIP IN SCH ×4 (08:02→22:04)
[2022-04-10] MEDS: INSULIN REGULAR, HUMAN 100 UNIT/ML 3 ML VIAL SQ PRN ×4 (08:05→22:12)
[2022-04-10] MEDS: FLUDROCORTISONE 0.1 MG TABLET PO SCH (08:29)
[2022-04-10] MEDS: MIDODRINE HCL (5MG) 5 MG TABLET PO SCH ×3 (08:29→18:39)
[2022-04-10] MEDS: SPIRONOLACTONE 25 MG TABLET PO SCH (08:30)
[2022-04-10] MEDS: DOCUSATE SODIUM 100 MG CAPSULE PO SCH (08:30)
[2022-04-10 12:00] VITALS: BP 92/59
--- NOTE | 2022-04-10 15:40 | NUR ---
RN NOTE NO CHANGES IN PT CONDITION THUS FAR DURING SHIFT. PT RESTING IN BED COMFORTABLY. WILL ENDORSE.
--- NOTE | 2022-04-10 16:00 | NUR ---
patient received in bed and skin w/d abdomen large and tender to touch vitals taken and recorded hep lock in place with no signs of redness or swelling noted patient encouraged use of call light to make all needs known will continue to assess and evaluate
--- NOTE | 2022-04-10 18:00 | NUR ---
blood sugar 169 coverage given with 4 units.sc
--- NOTE | 2022-04-10 18:59 | NUR ---
condition unchanged from previous assessment will continue to assess and evaluate
--- NOTE | 2022-04-10 19:45 | NUR ---
RN NOTE RECEIVED PT IN BED. AWAKE. ALERT. NOT IN ANY DISTRESS 97 % ON RA. ABDOMEN DISTENDED. DENIES PAIN AT THIS TIME. WILL CONTINUE TO MONITOR. ALL SAFETY MEASURES IN PLACE.
[2022-04-10 20:00] VITALS: BP 89/59
[2022-04-11] VITALS: BP 98/64
[2022-04-11 04:00] VITALS: BP 90/56
[2022-04-11] MEDS: LACTULOSE 10 G/15 ML UDC (PYXIS) PO SCH ×2 (06:00→18:00)
--- NOTE | 2022-04-11 06:31 | NUR ---
RN NOTE PT REFUSED TO TAKE LACTULOSE, EXPLAINED RISKS AND BENEFITS BY CHARGE NURSE IN [place]. PT REFUSED 3X. VERBALIZES UNDERSTANDING. PT HAD 1 BM DURING SHIFT. NO CHANGES IN LOC. REMAIN ALERT AND ORIENTED. WILL ENDORSE TO NEXT SHIFT NURSE FOR TRAVIS.
[2022-04-11 06:46] LABS: BASOPHILS % (AUTO) 0.1 % (0.0-2.0); EOSINOPHILS % (AUTO) 0.9 % (0.0-6.0); HEMATOCRIT 23 % (39-51); HEMOGLOBIN 7.3 g/dL (13.5-17.5); LYMPHOCYTES # (AUTO) 0.7 K/uL (0.8-4.8); LYMPHOCYTES % (AUTO) 4.9 % (20.0-44.0); MEAN CORPUSCULAR HGB CONC 32 g/dl (31.0-36.0); MEAN CORPUSCULAR VOLUME 96 fL (80-96); MONOCYTES # (AUTO) 1.2 K/uL (0.1-1.30); MONOCYTES % (AUTO) 7.8 % (2.0-12.0); NEUTROPHILS % (AUTO) 86.3 % (43.0-81.0); PLATELET COUNT (AUTO) 51 K/uL (150-450); RED BLOOD CELL COUNT(AUTO) 2.38 MIL/uL (4.5-6.0); WHITE BLOOD COUNT (AUTO) 15.1 K/uL (4.3-11.0)
--- NOTE | 2022-04-11 07:26 | NUR ---
RN OPENING NOTE RECEIVED PT ASLEEP IN BED, EASILY AROUSE. A/O X3, ABLE TO MAKE NEEDS KNOWN. ON RA, TOLERATING WELL. BREATHING EVEN AND UNLABORED. NOT IN ANY SIGN OF RESPIRATORY DISTRESS. IV ACCESS IN LFA G #20, INTACT AND PATENT. SAFETY MEASURES IN PLACE: BED IN LOWEST AND LOCKED POSITION, SIDE RAILS UP X3, BED ALARM ON AND CALL LIGHT WITHIN REACH. WILL CONTINUE TO MONITOR PT.
[2022-04-11] MEDS: BLOOD SUGAR DIAGNOSTIC 1 EACH STRIP IN SCH ×4 (08:07→22:27)
[2022-04-11 08:10] LABS: CREATININE 1.8 mg/dL (0.6-1.3); MAGNESIUM 1.9 mg/dL (1.8-2.4); POTASSIUM 3.8 mmol/L (3.5-5.1)
[2022-04-11] MEDS: SPIRONOLACTONE 25 MG TABLET PO SCH (08:25)
[2022-04-11] MEDS: DOCUSATE SODIUM 100 MG CAPSULE PO SCH (08:25)
[2022-04-11] MEDS: MIDODRINE HCL (5MG) 5 MG TABLET PO SCH ×3 (08:25→16:06)
[2022-04-11] MEDS: FLUDROCORTISONE 0.1 MG TABLET PO SCH (08:25)
[2022-04-11 08:29] LABS: PHOSPHORUS 3.2 mg/dL (2.5-4.9)
[2022-04-11] MEDS: GLUCERNA SHAKE 237 ML CAN PO SCH ×2 (08:45→12:04)
[2022-04-11] MEDS: INSULIN REGULAR, HUMAN 100 UNIT/ML 3 ML VIAL SQ PRN ×3 (11:10→17:08)
--- NOTE | 2022-04-11 11:11 | NUR ---
RN NOTE PT'S ACCUCHECKED SCHEDULED AT 0730 WAS 162 MG/DL. PT WAS SUPPOSE TO GET 3UNITS PER SLIDING SCALE, PT REFUSED INSULIN DOSE. EXPLAINED RISK AND BENEFITS, STILL STRONGLY REFUSED. Addendum: 04/11/22 at 1125 by ZEKE FITZPATRICK RN ERROR DELETE 3 UNITS CORRECTION: PT WAS SUPPOSE TO RECEIVE 4 UNITS PER SLIDING SCALE.
[2022-04-11 12:00] VITALS: BP 98/52
--- NOTE | 2022-04-11 12:40 | NUR ---
RN NOTE PT S/P PARACENTESIS, TOTAL OUTPUT OF 7700CC. PT WAS ABLE TO TOLERATE THE PROCEDURE. DRY PRESSURE DRESSING AT SITE. DENIES PAIN OR DISCOMFORT AT THIS TIME.
--- NOTE | 2022-04-11 18:04 | NUR ---
RN NOTE PT REFUSED LACTULOSE SCHEDULED AT 1800, EXPLAINED RISK AND BENEFITS, STILL STRONGLY REFUSED.
--- NOTE | 2022-04-11 18:34 | NUR ---
RN CLOSING NOTE PT AWAKE IN BED. A/O X3, ABLE TO MAKE NEEDS KNOWN. ON RA, TOLERATING WELL. BREATHING EVEN AND UNLABORED. NOT IN ANY SIGN OF RESPIRATORY DISTRESS. IV ACCESS IN LFA G #20, INTACT AND PATENT. S/P PARACENTESIS, DRESSING IN PLACE WITH NO DRAINAGE. DENIES PAIN OR DISCOMFORT AT THIS TIME. ALL NEEDS ATTENDED. TURNED AND REPOSITIONED Q2HRS AND NEEDED. SAFETY MEASURES IN PLACE: BED IN LOWEST AND LOCKED POSITION, SIDE RAILS UP X3, BED ALARM ON AND CALL LIGHT WITHIN REACH. WILL ENDORSE TO TRIAL MANAGER NURSE FOR TRAVIS.
[2022-04-11 20:00] VITALS: BP 77/44
--- NOTE | 2022-04-11 20:18 | NUR ---
RN NOTE RECEIVED PT IN BED, AWAKE. ALERT AND ORIENTED X3. NOT IN ANY DISTRESS. O2 SAT AT 99% ON RA. NOTED WITH LOW BP. SBP IN 70S. CHECKED MANUALLY, 70/44. HR 71. NOTIFIED DR OGLESBY, ORDERED TO GIVE 500ML NS BOLUS. WILL CONTINUE TO MONITOR.
[2022-04-11] MEDS ORDERED: IV NS 0.9% 500 ML IV ONE ×2 (20:30→22:30)
--- NOTE | 2022-04-11 22:05 | NUR ---
RN NOTE 500ML NS BOLUS GIVEN. BP STILL IN 70S. LATEST 71/44. HR 86. PT ALERT NOT IN ANY DISTRESS. DENIES ANY DIZZINESS. NOTIFIED DR OGLESBY, ORDERED TO GIVE ONE MORE BOLUS OF NS 500ML. NOTED ABDOMEN PARACENTESIS SITE WAS DRAINING FLUID. DRESSING SOAKED. CHANGED DRESSING GAUZE FOR PRESSURE. WILL CONTINUE TO MONITOR.
--- NOTE | 2022-04-11 23:30 | NUR ---
RN NOTE PT BP 83/47. NO CHANGES IN LOC. PER DR OGLESBY, TO MONITOR FOR NOW PT IS ASYMPTOMATIC. PT BASELINE SBP HIGH 80S TO 90S.
[2022-04-12] VITALS (10 sets, daily range): BP systolic 84–120; BP diastolic 46–74
--- NOTE | 2022-04-12 02:30 | NUR ---
RN NOTE PT AWAKE, NOT IN ANY DISTRESS. DENIES ANY SOB OR PAIN. WILL CONTINUE TO MONITOR.
[2022-04-12] MEDS: LACTULOSE 10 G/15 ML UDC (PYXIS) PO SCH ×2 (06:00→17:32)
[2022-04-12 06:36] LABS: BASOPHILS % (AUTO) 0.1 % (0.0-2.0); EOSINOPHILS % (AUTO) 3.9 % (0.0-6.0); HEMATOCRIT 21 % (39-51); LYMPHOCYTES # (AUTO) 0.4 K/uL (0.8-4.8); LYMPHOCYTES % (AUTO) 8.8 % (20.0-44.0); MEAN CORPUSCULAR HGB CONC 32 g/dl (31.0-36.0); MEAN CORPUSCULAR VOLUME 103 fL (80-96); MONOCYTES # (AUTO) 0.4 K/uL (0.1-1.30); MONOCYTES % (AUTO) 9.6 % (2.0-12.0); NEUTROPHILS # (AUTO) 3.4 K/uL (1.8-8.9); NEUTROPHILS % (AUTO) 77.6 % (43.0-81.0); RED BLOOD CELL COUNT(AUTO) 2.07 MIL/uL (4.5-6.0); WHITE BLOOD COUNT (AUTO) 4.3 K/uL (4.3-11.0)
[2022-04-12 06:52] LABS: CALCIUM, SERUM 7.2 mg/dL (8.5-10.1); CREATININE 1.5 mg/dL (0.6-1.3); POTASSIUM 3.7 mmol/L (3.5-5.1)
--- NOTE | 2022-04-12 06:58 | NUR ---
RN NOTE PT AWAKE. NO CHANGES IN LOC. DENIES ANY SOB OR PAIN AT THIS TIME. ABDOMEN SOFT. ABD DRESSING CLEAN AND DRY. LATEST BP 85/47. DENIES ANY DIZZINESS. HR 79. O2 SAT 97% ON RA. PT REFUSED TO TAKE LACTULOSE, EXPLAINED RISKS AND BENEFITS. VERBALIZES UNDERSTANDING, PT STATED HE WANTS TO GO HOME. WILL ENDORSE TO NEXT SHIFT NURSE FOR TRAVIS.
[2022-04-12 07:58] LABS: HEMOGLOBIN 6.8 g/dL (13.5-17.5)
[2022-04-12 07:59] LABS: PLATELET COUNT (AUTO) 49 K/uL (150-450)
[2022-04-12] MEDS: BLOOD SUGAR DIAGNOSTIC 1 EACH STRIP IN SCH ×4 (08:11→22:00)
--- NOTE | 2022-04-12 08:15 | NUR ---
DR. KRUEGER SEEN AND EVALUATED PT. AWARE OF LOW BP AND LOW HGB 6.8.PER MD NO NEW ORDERS FOR NOW.WILL CONTINUE TO MONITOR.
[2022-04-12] MEDS: DOCUSATE SODIUM 100 MG CAPSULE PO SCH (08:18)
[2022-04-12] MEDS: MIDODRINE HCL (5MG) 5 MG TABLET PO SCH ×3 (08:18→16:42)
[2022-04-12] MEDS: FLUDROCORTISONE 0.1 MG TABLET PO SCH (08:18)
[2022-04-12] MEDS: SPIRONOLACTONE 25 MG TABLET PO SCH (08:18)
[2022-04-12 09:09] LABS: BAND % (MANUAL) 1 % (0.0-5.0); LYMPHOCYTES % (MANUAL) 4 % (16-48); MONOCYTES % (MANUAL) 3 % (0-11.0); NEUTROPHILS % (MANUAL) 92 (42-76)
--- NOTE | 2022-04-12 10:06 | NUR ---
RN OPENING NOTE PATIENT AWAKE IN BED RESTING, A/O X4. NO S/S OF PAIN NOTED AT THIS TIME. ON ROOM AIR, NO DISTRESS OR SHORTNESS OF BREATH NOTED. IV ACCESS RFA #20G, INTACT, PATENT AND FLUSHING WELL. FALL AND SAFETY MEASURES IN PLACE, BED ALARM ON BED IN LOW AND LOCK POSITION, CALL LIGHT AND TABLE WITHIN EASY REACH, SIDE RAILS UP X2. WILL CONTINUE TO MONITOR.
[2022-04-12] MEDS: INSULIN REGULAR, HUMAN 100 UNIT/ML 3 ML VIAL SQ PRN ×2 (12:16→16:43)
--- NOTE | 2022-04-12 18:43 | NUR ---
RN NOTE PATIENT IS GETTING 1 UNIT OF BLOOD, DUE TO HEMOGLOBIN OF 6.8. V/S TAKEN AND RECORDED. PATIENT TOLERATING TRANSFUSION WELL, NO REACTIONS AT THE MOMENT. WILL CONTINUE TO MONITOR.
--- NOTE | 2022-04-12 18:50 | NUR ---
RN CLOSING NOTE PATIENT AWAKE IN BED RESTING, A/O X4. NO S/S OF PAIN NOTED AT THIS TIME. ON ROOM AIR, NO DISTRESS OR SHORTNESS OF BREATH NOTED. IV ACCESS RFA #20G, INTACT, PATENT AND FLUSHING WELL. ALL SCHEDULED MEDICATIONS ADMINISTERED. PATIENT IS GETTING 1 UNIT OF BLOOD, DUE TO HEMOGLOBIN OF 6.8. V/S TAKEN AND RECORDED. PATIENT TOLERATING TRANSFUSION WELL, NO REACTIONS AT THE MOMENT. FALL AND SAFETY MEASURES IN PLACE, BED ALARM ON BED IN LOW AND LOCK POSITION, CALL LIGHT AND TABLE WITHIN EASY REACH, SIDE RAILS UP X2. WILL ENDORSE TO PIER MASTER.
--- NOTE | 2022-04-12 19:15 | NUR ---
received brief report form staff AMRN regarding pts status and dispo. using sbar method right outside pts room just before entering room and meeting pt. I was somewhat familiar with pt from yesterday. Pt is a malnurished and almost emaciated 57yo male suffering from end-stage alcoholism, hepatic encephalopathy, and ascites, Pt appears weathered with dark wrinkley skin, Reoort i received states that pt is aaox4 but this is hard to assess for me due to language barrier. VSS, PE WNL, good distal pulses x4ext. equal signal inspector strength bilat. Pt denies any pain, sob, n/v, dizziness or discomfort. No s/sx of distress present.
--- NOTE | 2022-04-12 22:10 | NUR ---
Pt's BG checked via accucheck at bedside using finger stick without difficulty. B, no coverage needed. Pt went promptly back to sleep. VSS, NAD
[2022-04-13 05:04] VITALS: BP 106/69
[2022-04-13] MEDS: BLOOD SUGAR DIAGNOSTIC 1 EACH STRIP IN SCH ×4 (06:53→23:16)
[2022-04-13] MEDS: INSULIN REGULAR, HUMAN 100 UNIT/ML 3 ML VIAL SQ PRN ×4 (06:54→23:15)
[2022-04-13] MEDS: LACTULOSE 10 G/15 ML UDC (PYXIS) PO SCH ×2 (06:55→18:14)
--- NOTE | 2022-04-13 07:35 | NUR ---
ms rn received patient,awake,alert,oriented x3,not in any form of distress, respirations even and unlabored,no sob noted, lungs are diminished,abdomen distended,soft,positive bowel sounds, denies pain at this time, will monitor patient.
--- NOTE | 2022-04-13 07:35 | NUR ---
ms garcia received on bed, non verbal patient, opens eyes, responsive to stimuli, g tube running at 30ml/hour,flores intact w/ yellowish urine output. Addendum: 04/13/22 at 1917 by BENJAMIN ARMSTRONG RN disregard note,wrong pt.
--- NOTE | 2022-04-13 08:30 | NUR ---
ms rn due meds given, all needs attended,no distress noted.
[2022-04-13 08:53] LABS: EOSINOPHILS % (AUTO) 2.9 % (0.0-6.0); HEMATOCRIT 28 % (39-51); HEMOGLOBIN 9.1 g/dL (13.5-17.5); LYMPHOCYTES # (AUTO) 0.4 K/uL (0.8-4.8); LYMPHOCYTES % (AUTO) 5.5 % (20.0-44.0); MEAN CORPUSCULAR HGB CONC 32 g/dl (31.0-36.0); MEAN CORPUSCULAR VOLUME 96 fL (80-96); MONOCYTES # (AUTO) 0.7 K/uL (0.1-1.30); MONOCYTES % (AUTO) 8.8 % (2.0-12.0); NEUTROPHILS # (AUTO) 6.3 K/uL (1.8-8.9); NEUTROPHILS % (AUTO) 82.8 % (43.0-81.0); RED BLOOD CELL COUNT(AUTO) 2.95 MIL/uL (4.5-6.0); WHITE BLOOD COUNT (AUTO) 7.6 K/uL (4.3-11.0)
[2022-04-13 08:59] LABS: PLATELET COUNT (AUTO) 23 K/uL (150-450)
--- NOTE | 2022-04-13 09:00 | NUR ---
ms garcia breakfast served,due meds given, tolerated well.
[2022-04-13] MEDS: FLUDROCORTISONE 0.1 MG TABLET PO SCH (09:23)
[2022-04-13] MEDS: DOCUSATE SODIUM 100 MG CAPSULE PO SCH (09:23)
[2022-04-13] MEDS: SPIRONOLACTONE 25 MG TABLET PO SCH (09:23)
[2022-04-13] MEDS: MIDODRINE HCL (5MG) 5 MG TABLET PO SCH ×3 (09:24→18:14)
[2022-04-13 10:16] LABS: BAND % (MANUAL) 1 % (0.0-5.0); EOSINOPHILS % (MANUAL) 2 % (0-4); LYMPHOCYTES % (MANUAL) 3 % (16-48); MONOCYTES % (MANUAL) 3 % (0-11.0); MYELOCYTES % 1 % (0-0); NEUTROPHILS % (MANUAL) 90 (42-76)
[2022-04-13 11:44] LABS: CALCIUM, SERUM 7.4 mg/dL (8.5-10.1); CREATININE 1.5 mg/dL (0.6-1.3); POTASSIUM 3.8 mmol/L (3.5-5.1)
[2022-04-13 12:00] VITALS: BP 144/53
[2022-04-13] MEDS: CALCIUM CARB 600MG /VIT D 1 EACH TABLET PO SCH (12:20)
--- NOTE | 2022-04-13 18:00 | NUR ---
ms jose reyes bed, feeding increased to 40ml/hr, all needs attended. Addendum: 04/13/22 at 1918 by BENJAMIN ARMSTRONG RN disregard noted, wrong pt.
[2022-04-13 20:00] VITALS: BP 91/64
--- NOTE | 2022-04-13 20:00 | NUR ---
RN OPENING NOTE PATIENT AWAKE ALERT COMFORTABLE AND RESTING IN BED .V/S STABLE AFEBRILE NO S/S OF PAIN NOTED AT THIS TIME. ON ROOM AIR, NO DISTRESS OR SHORTNESS OF BREATH NOTED. IV ACCESS RFA #20G, INTACT, PATENT AND FLUSHING WELL. FALL AND SAFETY MEASURES IN PLACE, BED ALARM ON BED IN LOW AND LOCK POSITION, CALL LIGHT AND TABLE WITHIN EASY REACH, SIDE RAILS UP X2. WILL CONTINUE TO MONITOR.
--- NOTE | 2022-04-13 22:00 | NUR ---
ms rn notes blood sugar at 22hrs is 163 mg/dl 4 units of regular insulin given per sliding scale will check blood sugar again in am
[2022-04-14 04:00] VITALS: BP 81/51
[2022-04-14] MEDS: LACTULOSE 10 G/15 ML UDC (PYXIS) PO SCH ×2 (05:41→17:07)
--- NOTE | 2022-04-14 06:38 | NUR ---
ms jonn merino notes pts resting in bed awake and responsive , all needs attended to call light within reach ,will endorse pts to rn day shift for continuity of care.
[2022-04-14 07:01] LABS: CALCIUM, SERUM 7.5 mg/dL (8.5-10.1); CREATININE 1.5 mg/dL (0.6-1.3); POTASSIUM 3.7 mmol/L (3.5-5.1)
[2022-04-14 07:09] LABS: HEMATOCRIT 27 % (39-51); HEMOGLOBIN 8.9 g/dL (13.5-17.5); LYMPHOCYTES # (AUTO) 0.5 K/uL (0.8-4.8); LYMPHOCYTES % (AUTO) 8.2 % (20.0-44.0); MEAN CORPUSCULAR HGB CONC 33 g/dl (31.0-36.0); MEAN CORPUSCULAR VOLUME 95 fL (80-96); MONOCYTES # (AUTO) 0.7 K/uL (0.1-1.30); MONOCYTES % (AUTO) 10.5 % (2.0-12.0); NEUTROPHILS % (AUTO) 75.3 % (43.0-81.0); RED BLOOD CELL COUNT(AUTO) 2.83 MIL/uL (4.5-6.0); WHITE BLOOD COUNT (AUTO) 6.7 K/uL (4.3-11.0)
--- NOTE | 2022-04-14 07:32 | NUR ---
RN OPENING NOTES Patient seen comfortably lying in bed, no SOB, no apparent distress noted, breathing even and unlabored, denies any pain or discomfort at this time, no grimacing. Call light left within reach, safety precautions in place, brakes locked, side rails up X 2.
[2022-04-14] MEDS: BLOOD SUGAR DIAGNOSTIC 1 EACH STRIP IN SCH ×4 (07:44→22:37)
[2022-04-14 07:45] LABS: PLATELET COUNT (AUTO) 22 K/uL (150-450)
[2022-04-14 08:00] VITALS: BP 110/54
[2022-04-14] MEDS: CALCIUM CARB 600MG /VIT D 1 EACH TABLET PO SCH (08:06)
[2022-04-14] MEDS: DOCUSATE SODIUM 100 MG CAPSULE PO SCH (08:06)
[2022-04-14] MEDS: FLUDROCORTISONE 0.1 MG TABLET PO SCH (08:06)
[2022-04-14] MEDS: MIDODRINE HCL (5MG) 5 MG TABLET PO SCH ×3 (08:06→16:05)
[2022-04-14] MEDS: INSULIN REGULAR, HUMAN 100 UNIT/ML 3 ML VIAL SQ PRN ×3 (11:45→22:36)
[2022-04-14 12:00] VITALS: BP 111/53
[2022-04-14 16:00] VITALS: BP 100/60
[2022-04-14 16:25] LABS: BAND % (MANUAL) 1 % (0.0-5.0); EOSINOPHILS % (MANUAL) 2 % (0-4); LYMPHOCYTES % (MANUAL) 6 % (16-48); MONOCYTES % (MANUAL) 9 % (0-11.0); NEUTROPHILS % (MANUAL) 82 (42-76)
--- NOTE | 2022-04-14 18:17 | NUR ---
RN CLOSING NOTES Patient lying in bed, respirations even and unlabored, no shortness of breath, no apparent distress noted, denies any pain or discomfort at this time, no unusual bruising, no s/s of bleeding, no hematuria, no bleeding gums, remained afebrile. All medications given per MD order, tolerating well. Insulin given per sliding scale as needed per MD order, no s/s of hypo/hyperglycemia at this time, no tremors. All needs attended, aspiration precautions rendered, kept clean and dry, safety precautions in place, frequent visual check rendered, brakes locked, side rails up X 2, call light left within reach.
--- NOTE | 2022-04-14 19:46 | NUR ---
RN OPENING NOTE PATIENT AWAKE ALERT x4 COMFORTABLE AND RESTING IN BED .V/S STABLE AFEBRILE NO S/S OF PAIN NOTED AT THIS TIME. ON ROOM AIR, NO DISTRESS OR SHORTNESS OF BREATH NOTED. IV ACCESS RFA #20G, INTACT, PATENT AND FLUSHING WELL. FALL AND SAFETY MEASURES IN PLACE, BED ALARM ON BED IN LOW AND LOCK POSITION, CALL LIGHT AND TABLE WITHIN EASY REACH, SIDE RAILS UP X2. WILL CONTINUE TO MONITOR.
[2022-04-14 20:00] VITALS: BP 80/53
--- NOTE | 2022-04-14 22:38 | NUR ---
ms rn notes blood sugar of 129 at 22hrs no coverage given per sliding scale will check bloos sugar again in am.
[2022-04-15 04:00] VITALS: BP 90/55
[2022-04-15 06:25] LABS: BASOPHILS % (AUTO) 0.3 % (0.0-2.0); EOSINOPHILS % (AUTO) 3.6 % (0.0-6.0); HEMATOCRIT 29 % (39-51); HEMOGLOBIN 9.5 g/dL (13.5-17.5); LYMPHOCYTES # (AUTO) 0.7 K/uL (0.8-4.8); LYMPHOCYTES % (AUTO) 7.8 % (20.0-44.0); MEAN CORPUSCULAR HGB CONC 33 g/dl (31.0-36.0); MEAN CORPUSCULAR VOLUME 95 fL (80-96); MONOCYTES # (AUTO) 0.8 K/uL (0.1-1.30); MONOCYTES % (AUTO) 8.5 % (2.0-12.0); NEUTROPHILS # (AUTO) 7.4 K/uL (1.8-8.9); NEUTROPHILS % (AUTO) 79.8 % (43.0-81.0); RED BLOOD CELL COUNT(AUTO) 3.05 MIL/uL (4.5-6.0); WHITE BLOOD COUNT (AUTO) 9.3 K/uL (4.3-11.0)
[2022-04-15] MEDS: LACTULOSE 10 G/15 ML UDC (PYXIS) PO SCH ×2 (06:25→17:23)
[2022-04-15 06:33] LABS: PLATELET COUNT (AUTO) 27 K/uL (150-450)
[2022-04-15 06:35] LABS: CALCIUM, SERUM 7.5 mg/dL (8.5-10.1); CREATININE 1.8 mg/dL (0.6-1.3); POTASSIUM 3.7 mmol/L (3.5-5.1)
--- NOTE | 2022-04-15 06:45 | NUR ---
ms rn notes Pts resting in bed awake and responsive , all needs attended to call light within reach ,will endorse pts to rn day shift for continuity of care.
[2022-04-15 07:27] LABS: LYMPHOCYTES % (MANUAL) 10 % (16-48); MONOCYTES % (MANUAL) 4 % (0-11.0); NEUTROPHILS % (MANUAL) 86 (42-76)
--- NOTE | 2022-04-15 07:30 | NUR ---
RN OPENING NOTE RECEIVED PATIENT AWAKE IN BED. PATIENT IS ALERT AND ORIENTED TIMES x4 . NO PAIN NOTED. NO SOB NOTED . NO DISTRESS NOTED . ON ROOM AIR, NO DISTRESS OR SHORTNESS OF BREATH NOTED. IV ACCESS RFA #20G, INTACT, PATENT AND FLUSHING WELL. KEPT HOB ELEVATED FOR ASPIRATION PRECAUTION. FALL AND SAFETY MEASURES IN PLACE, BED ALARM ON BED IN LOW AND LOCK POSITION, CALL LIGHT AND TABLE WITHIN EASY REACH, SIDE RAILS UP X2. WILL CONTINUE TO MONITOR.
[2022-04-15] MEDS: BLOOD SUGAR DIAGNOSTIC 1 EACH STRIP IN SCH ×4 (07:35→21:05)
[2022-04-15] MEDS: DOCUSATE SODIUM 100 MG CAPSULE PO SCH (08:30)
[2022-04-15] MEDS: FLUDROCORTISONE 0.1 MG TABLET PO SCH (08:30)
[2022-04-15] MEDS: CALCIUM CARB 600MG /VIT D 1 EACH TABLET PO SCH (08:30)
[2022-04-15] MEDS: MIDODRINE HCL (5MG) 5 MG TABLET PO SCH ×3 (08:31→16:44)
--- NOTE | 2022-04-15 09:00 | NUR ---
RN NOTES HELD INSULIN, SINCE PATIENT IS NOT EATING PROPERLY.
[2022-04-15] MEDS: INSULIN REGULAR, HUMAN 100 UNIT/ML 3 ML VIAL SQ PRN ×2 (11:21→17:27)
[2022-04-15 12:23] VITALS: BP 80/57
--- NOTE | 2022-04-15 19:30 | NUR ---
RN CLOSING NOTE PATIENT AWAKE IN BED. PATIENT IS ALERT AND ORIENTED TIMES x4 . NO PAIN NOTED. NO SOB NOTED . NO DISTRESS NOTED . ON ROOM AIR, NO DISTRESS OR SHORTNESS OF BREATH NOTED. IV ACCESS RFA #20G, INTACT, PATENT AND FLUSHING WELL. KEPT HOB ELEVATED FOR ASPIRATION PRECAUTION. ALL DUE MEDS GIVEN ORDERED. CHEST TUBE SITE IS LEAKING. REINFORCED DRESSING. MD AND CHARGE NURSE AWARE OF THAT.FALL AND SAFETY MEASURES IN PLACE, BED ALARM ON BED IN LOW AND LOCK POSITION, CALL LIGHT AND TABLE WITHIN EASY REACH, SIDE RAILS UP X2. WILL ENDORSE FOR TRAVIS.
[2022-04-15 20:00] VITALS: BP 72/52
[2022-04-15 20:36] LABS: CALCIUM, SERUM 7.2 mg/dL (8.5-10.1); CREATININE 2.1 mg/dL (0.6-1.3); POTASSIUM 3.7 mmol/L (3.5-5.1)
[2022-04-15 20:42] LABS: ALBUMIN 2.2 g/dL (3.4-5.0); BILIRUBIN,TOTAL 1.2 mg/dL (0.2-1.0); TOTAL PROTEIN, SERUM 5.2 g/dL (6.4-8.2)
--- NOTE | 2022-04-15 20:45 | NUR ---
RN NOTE EARLIER, PATIENT NOTED WITH LOW BLOOD PRESSURE OF 72/50 VIA MANUAL BLOOD PRESSURE DEVICE. BP MACHINE READS 71/51 & 77/52. PATIENT DOES APPEAR SLIGHTLY LETHARGIC BUT EASILY AROUSABLE AND CAN COMMUNICATE. DENIES SHORTNESS OF BREATH. BLOOD SUGAR WAS CHECKED AND IT WAS 131 VIA FINGER STICK. PATIENT DENIES FEELINGS OF DIZZINESS/SYNCOPE. ASKED PATIENT IF HE WAS EXPERIENCING CHEST PAIN. PATIENT STATES LEFT CHEST, NON-RADIATING. INFORMED MD CLIENT TECHNOLOGIES SPECIALIST, SHANTELLE. PER MD, ORDER STAT CMP & GIVE ALBUMIN 25% 25 GM X 2 BAGS. PER CHARGE NURSEJANELLE, ALBUMIN NOT AVAILABLE IN UNIT OMNICELL. FAXED ORDER TO NURSING CORRECTIONAL TREATMENT SPECIALIST. WILL CONTINUE TO MONITOR PATIENT.
--- NOTE | 2022-04-15 20:48 | NUR ---
RN NOTE PATIENT REQUESTING TO USE THE RESTROOM. NOTED WITH MODERATE TO LARGE AMOUNT OF FRESH BRIGHT RED BLOOD. COMING FROM ANUS. NO CLUMPS. INFORMED MD SLAB LIFTING ENGINEER, SHANTELLE. PER MD, ORDER STAT H & H, PROTNIX 40 MG STAT NOW AND START PATIENT ON PROTONIX 40 MG BID. WILL CONTINUE TO MONITOR.
[2022-04-15] MEDS ORDERED: PANTOPRAZOLE 40 MG VIAL IV ONE (21:00)
[2022-04-15] MEDS ORDERED: ALBUMIN 25% 100 ML IV ONE (21:17)
[2022-04-15] MEDS: ALBUMIN 25% 25 GM in PREMIX 1 EA IV SCH ×2 (21:30→21:54)
[2022-04-15 21:32] LABS: HEMOGLOBIN 8.7 g/dL (13.5-17.5)
[2022-04-16] VITALS (45 sets, daily range): BP systolic 51–108; BP diastolic 28–67
[2022-04-16] MEDS: LACTULOSE 10 G/15 ML UDC (PYXIS) PO SCH ×2 (06:22→17:21)
[2022-04-16 07:20] LABS: CALCIUM, SERUM 7.4 mg/dL (8.5-10.1); CREATININE 2.1 mg/dL (0.6-1.3)
--- NOTE | 2022-04-16 07:23 | NUR ---
RN OPENING NOTE PATIENT RECEIVED IN BED, RESTING. PATIENT ON RA WITH NO SIGNS OF LABORED BREATHING AT THIS TIME. RIGHT FA 22G IN PLACE SL. BED LOCKED AND IN LOWEST POSITION, CALL LIGHT WITHIN REACH, 3 SIDE RAILS UP.
[2022-04-16] MEDS: BLOOD SUGAR DIAGNOSTIC 1 EACH STRIP IN SCH ×4 (07:44→22:34)
[2022-04-16] MEDS: INSULIN REGULAR, HUMAN 100 UNIT/ML 3 ML VIAL SQ PRN ×3 (07:57→22:36)
[2022-04-16] MEDS: MIDODRINE HCL (5MG) 5 MG TABLET PO SCH ×3 (08:02→17:35)
[2022-04-16] MEDS: PANTOPRAZOLE 40 MG VIAL IV SCH ×2 (08:02→17:35)
[2022-04-16] MEDS: DOCUSATE SODIUM 100 MG CAPSULE PO SCH ×2 (08:02→08:15)
[2022-04-16] MEDS: FLUDROCORTISONE 0.1 MG TABLET PO SCH (08:02)
[2022-04-16] MEDS: CALCIUM CARB 600MG /VIT D 1 EACH TABLET PO SCH ×2 (08:02→08:15)
--- NOTE | 2022-04-16 08:15 | NUR ---
RN NOTE BP 73/41. REPORT FROM SERVICE UNIT OPERATOR OIL WELL THAT PT'S BP BASELINE IS LOW, DR. PEPPER NOTIFIED OVERNIGHT. MIDODRINE 10MG GIVEN.
[2022-04-16 08:59] LABS: BASOPHILS % (AUTO) 0.2 % (0.0-2.0); EOSINOPHILS % (AUTO) 2.8 % (0.0-6.0); HEMATOCRIT 25 % (39-51); HEMOGLOBIN 7.9 g/dL (13.5-17.5); LYMPHOCYTES # (AUTO) 0.7 K/uL (0.8-4.8); LYMPHOCYTES % (AUTO) 7.1 % (20.0-44.0); MEAN CORPUSCULAR HGB CONC 31 g/dl (31.0-36.0); MEAN CORPUSCULAR VOLUME 99 fL (80-96); MONOCYTES # (AUTO) 0.8 K/uL (0.1-1.30); MONOCYTES % (AUTO) 7.7 % (2.0-12.0); NEUTROPHILS # (AUTO) 8.4 K/uL (1.8-8.9); NEUTROPHILS % (AUTO) 82.2 % (43.0-81.0); RED BLOOD CELL COUNT(AUTO) 2.56 MIL/uL (4.5-6.0); WHITE BLOOD COUNT (AUTO) 10.2 K/uL (4.3-11.0)
[2022-04-16 09:04] LABS: PLATELET COUNT (AUTO) 31 K/uL (150-450)
[2022-04-16 10:20] LABS: EOSINOPHILS % (MANUAL) 2 % (0-4); LYMPHOCYTES % (MANUAL) 10 % (16-48); MONOCYTES % (MANUAL) 9 % (0-11.0); NEUTROPHILS % (MANUAL) 79 (42-76)
[2022-04-16] MEDS: IV NS 0.9% 1,000 ML IV PRN ×2 (10:32→21:03)
--- NOTE | 2022-04-16 12:09 | NUR ---
RN NOTE BP 70/47. MIDODRINE 10MG GIVEN. DR. KRUEGER NOTIFIED.
[2022-04-16] MEDS ORDERED: IV NS 0.9% 500 ML IV ONE ×2 (13:00)
--- NOTE | 2022-04-16 13:00 | NUR ---
RN NOTE BP LOW. 500CC BOLUS GIVEN. BP 77/43 AFTER BOLUS
--- NOTE | 2022-04-16 15:45 | NUR ---
RN NOTE VERBAL ORDER FROM DR. KRUEGER TO TRANSFER PT TO ICU AND INITIATE LEVOPHED DRIP FOR BP MAINTAINED. ORDER CARRIED OUT AND TRANSFER INITIATED.
[2022-04-16] MEDS ORDERED: NOREPINEPHRINE 8 MG in IV NS 0.9% 242 ML IV PRN ×5 (16:00→17:30)
--- NOTE | 2022-04-16 16:02 | NUR ---
PT ARRIVED IN ICU AT 1602 VIA BED TO ROOM 259. LEVOPHED INFUSING AT 0.4MCG/KG/MIN PER MD ORDERS TO KEEP MAP >65. BEDSIDE REPORT RECEIVED FROM MARILU MIDDLETON. PT HAS ACTIVE GI BLEEDING. 1 UNIT OF PRBC'S ORDERED AT THIS TIME. PT IS AWAKE, COOPERATIVE, MAORI SPEAKING ONLY. PT CHECKED ON HOURLY AND PRN BY NURSING STAFF.
--- NOTE | 2022-04-16 16:29 | NUR ---
RN NOTE PATIENT TRANSFERRED TO ICU ROOM 259. REPORT GIVEN TO CHARGE NURSE ROGELIO MIDDLETON.
--- NOTE | 2022-04-16 16:45 | NUR ---
rn notes PATIENT TRANSFERRED FROM [facility] AT THIS TIME ON Dx OF GI BLEEDING. PATIENT BP 83/50, P-118 GET STAT ORDER FOR LEVOPHED . PATIENT HAS MASSIVE GI BLEED, SKINNY 115.2LB, SKIN ASSESSMENT DONE. GOT KANE MICHEL BEDSIDE REPORT. PATIENT O2-2LNC, NO ACUTE SOB NOTES. PATIENT DANISH SPEAKER. SABA MIDLINE INFUSING NS@100ML. WILL FOLLOW UP.
[2022-04-16 17:13] LABS: BASOPHILS % (AUTO) 0.2 % (0.0-2.0); EOSINOPHILS % (AUTO) 2.1 % (0.0-6.0); HEMATOCRIT 24 % (39-51); HEMOGLOBIN 7.7 g/dL (13.5-17.5); LYMPHOCYTES # (AUTO) 0.8 K/uL (0.8-4.8); LYMPHOCYTES % (AUTO) 6.6 % (20.0-44.0); MEAN CORPUSCULAR HGB CONC 31 g/dl (31.0-36.0); MEAN CORPUSCULAR VOLUME 98 fL (80-96); MONOCYTES # (AUTO) 1.2 K/uL (0.1-1.30); MONOCYTES % (AUTO) 9.6 % (2.0-12.0); NEUTROPHILS # (AUTO) 10.1 K/uL (1.8-8.9); NEUTROPHILS % (AUTO) 81.5 % (43.0-81.0); PLATELET COUNT (AUTO) 60 K/uL (150-450); RED BLOOD CELL COUNT(AUTO) 2.49 MIL/uL (4.5-6.0); WHITE BLOOD COUNT (AUTO) 12.4 K/uL (4.3-11.0)
--- NOTE | 2022-04-16 17:34 | NUR ---
rn notes administered Zofran 4 mg/ml iv push for nausea, bs-181 mg/dl patient refused dinner. due medication administered, bp 83/50, p118. patient bleeding rectally.
--- NOTE | 2022-04-16 18:30 | NUR ---
RN NOTES PM CARE DONE, PATIENT HAS DISTENDED ABDOMEN, MEDICATION WERE ADMINISTERED FOR NAUSEA EFFECTIVE,. PATIENT GOT ORDER ONE UNIT OF BLOOD TRANSFUSION. CALL LIGHT WITHIN TO REACH. ENDORSED ONCOMING NURSE TRAVIS.
--- NOTE | 2022-04-16 19:32 | NUR ---
ICU/FIELD CONTACT PERSON CORE TEMP. 95.4F WAS FOUND, ÁNGELA BLACK ORDERED AND PLACED ON PT. PT WAS TURNED AND REPOSITIONED FOR COMFORT AND CARE.
[2022-04-16 20:28] LABS: BAND % (MANUAL) 7 % (0.0-5.0); EOSINOPHILS % (MANUAL) 1 % (0-4); LYMPHOCYTES % (MANUAL) 6 % (16-48); MONOCYTES % (MANUAL) 5 % (0-11.0); NEUTROPHILS % (MANUAL) 81 (42-76)
[2022-04-16] MEDS ORDERED: NOREPINEPHRINE 4 MG/4 ML AMPUL IV ONE (20:59)
[2022-04-16] MEDS: NOREPINEPHRINE 32 MG in IV NS 0.9% 218 ML IV PRN (21:11)
--- NOTE | 2022-04-16 21:30 | NUR ---
ICU/MACHINE BASTER LOW BLOOD PRESSURE, ACTIVELY TITRATING LEVO 8MG FOR THIS. WILL CONTINUE TO MONITOR THIS PT.
--- NOTE | 2022-04-16 23:00 | NUR ---
ICU/COATING ENGINEER LEVO 32MG IS MAXED AT THIS TIME, WILL CONTINUE TO MONITOR THIS PT AND HIS BLOOD PRESSURE.
--- NOTE | 2022-04-16 23:06 | NUR ---
ICU/HOME SCHOOL COORDINATOR IT APPEARS THAT PT HAS HAD MANY PARACENTESIS DURING THIS HOSPITALIZATION 1. 03/22-? NO DOCUMENTATION TO SUPPORT THIS. PT'S PLATELETS WERE DOWN 2. 03/29-7.9 LITERS REMOVED 3. 03/31-6 LITERS REMOVED 4. 6/-8.3 LITERS REMOVED 5. 6/7-7.7 LITERS REMOVED
[2022-04-17] VITALS (70 sets, daily range): BP systolic 42–92; BP diastolic 21–67
[2022-04-17] MEDS ORDERED: PHENYLEPHRINE 10 MG/ML VIAL ONE (00:06)
[2022-04-17] MEDS: PHENYLEPHRINE 100 MG in IV NS 0.9% 240 ML IV PRN ×2 (00:16→10:02)
--- NOTE | 2022-04-17 00:23 | NUR ---
ICU/FORM COVERER PT APPEARS TO BE ALTERED, STAT ABG DONE, CBC, AMMONIA IS ORDERED. ALSO SECOND PRESSOR STARTED DUE TO LOW CYCLE SBP 80'S. THIS WAS STARTED BY ELECTRICAL CHECKOUT MECHANIC NURSE
[2022-04-17 00:27] LABS: ABG BASE EXCESS -22.4 mmol/L; ABG PCO2 15.8 mmHg (35.0-45.0); ABG PH 7.119 (7.350-7.450); ABG PO2 141.2 mmHg (75.0-100.0); COHb 0.3 % (0.5-1.5); MetHb 0.6 % (0.0-1.5); O2Hb 97.3 % (94.0-97.0); SITE, ABG Right Radial; VENT MODE, BG 4L N/C
[2022-04-17] MEDS ORDERED: VASOPRESSIN INJ 20 UNIT/ML VIAL ONE (00:47)
[2022-04-17 00:51] LABS: BASOPHILS % (AUTO) 0.1 % (0.0-2.0); EOSINOPHILS % (AUTO) 0.1 % (0.0-6.0); HEMATOCRIT 24 % (39-51); HEMOGLOBIN 7.3 g/dL (13.5-17.5); LYMPHOCYTES # (AUTO) 0.6 K/uL (0.8-4.8); LYMPHOCYTES % (AUTO) 3.9 % (20.0-44.0); MEAN CORPUSCULAR HGB CONC 31 g/dl (31.0-36.0); MEAN CORPUSCULAR VOLUME 100 fL (80-96); MONOCYTES # (AUTO) 0.9 K/uL (0.1-1.30); MONOCYTES % (AUTO) 6.2 % (2.0-12.0); NEUTROPHILS # (AUTO) 12.9 K/uL (1.8-8.9); NEUTROPHILS % (AUTO) 89.7 % (43.0-81.0); PLATELET COUNT (AUTO) 91 K/uL (150-450); RED BLOOD CELL COUNT(AUTO) 2.35 MIL/uL (4.5-6.0); WHITE BLOOD COUNT (AUTO) 14.3 K/uL (4.3-11.0)
[2022-04-17] MEDS ORDERED: SODIUM BICARBONATE SYR 50 MEQ/50 ML DISP.SYRIN IV ONE (01:00)
[2022-04-17] MEDS ORDERED: VASOPRESSIN INJ 40 UNIT in IV NS 0.9% 38 ML IV PRN (01:00)
--- NOTE | 2022-04-17 01:00 | NUR ---
ICU/SALES EXHIBITOR MAXED GILDA DUE TO LOW BP Addendum: 04/17/22 at 0338 by MAGALI AUSTIN SALES EXHIBITOR ALLEY TENDER MD CRISTI PUCKETT TO MAX DRIP DUE TO LOW BP. CHARGE NURSFLEX MADE AWARE
--- NOTE | 2022-04-17 01:06 | NUR ---
ICU/PERFORMANCE TESTER STAT ABG DONE, RESULTS GIVEN CHARGE NURSE CALLED MD WHO ORDERED 2 AMPS BICARB IVP. CHARGE NURSE CARRIED OUT ORDERS. Addendum: 04/17/22 at 0107 by CATHRYN LEVY RN DOCUMENTED UNDER WRONG NAME
--- NOTE | 2022-04-17 01:08 | NUR ---
ICU/AREA INTELLIGENCE TECHNICIAN STAT ABG DONE, RESULTS GIVEN CHARGE NURSE CALLED MD WHO ORDERED 2 AMPS BICARB IVP. CHARGE NURSE CARRIED OUT ORDERS.
--- NOTE | 2022-04-17 01:39 | NUR ---
-sister Kathia Addendum: 04/17/22 at 0253 by MAGALI AUSTIN LVN KIKE MEJÍA
--- NOTE | 2022-04-17 01:45 | NUR ---
rt called to pt bedside for intubation as ordered by physician. pt aloc. pt intubated by er physician with 7.0@23cm, placed on vent ac 20 450 100% +0. ett secured via anchorfast. unable to obtain a spo2 reading at this time Addendum: 04/17/22 at 0614 by JULES AKBAR RT Amended: Links added.
--- NOTE | 2022-04-17 01:45 | NUR ---
ICU/JAVASCRIPT PROGRAMMER PT WAS INTUBATED BEFORE PT BECOMES CRITICAL A/C 7.0-23/ 20, 450, 50, 5. CHEST XRAY DONE
[2022-04-17 01:48] LABS: CHLORIDE 104 mmol/L (98-107); POTASSIUM 5.2 mmol/L (3.5-5.1); SODIUM SERUM 129 mmol/L (136-145)
[2022-04-17 01:49] LABS: CALCIUM, SERUM 7.5 mg/dL (8.5-10.1); GLUCOSE 198 mg/dL (74-106); UREA NITROGEN, BLOOD 59 mg/dL (7-18)
[2022-04-17 01:50] LABS: ALANINE AMINOTRANSFERASE 35 U/L (12-78); ALBUMIN 2.7 g/dL (3.4-5.0); ALKALINE PHOSPHATASE 161 U/L (46-116); ASPARTATE AMINOTRANSFERASE 34 U/L (15-37); CREATININE 2.5 mg/dL (0.6-1.3)
[2022-04-17 01:51] LABS: CARBON DIOXIDE 7 mmol/L (21-32); TOTAL PROTEIN, SERUM 5.4 g/dL (6.4-8.2)
[2022-04-17] MEDS ORDERED: LACTULOSE 10 G/15 ML UDC (PYXIS) PR SCH (02:00)
--- NOTE | 2022-04-17 02:00 | NUR ---
ICU/JAVA GROOVY DEVELOPER OK TO MAX GILDA DUE TO LOW BLOOD PRESSURE. PER INFORMATICS DEVELOPER
--- NOTE | 2022-04-17 02:30 | NUR ---
ICU/THERMAL CUTTER HELPER LEVO 32MG IS MAXED, GILDA 100MG IS MAXED VASO IS MAXED, PT CONTINUE TO HAVE LOW BLOOD PRESSURE. CHARGE NURSE SPOKE TO FAMILY ABOUT CODE STATUS, FAMILY AGREED ON DNR STATUS.
--- NOTE | 2022-04-17 02:30 | NUR ---
ICU/DIVISION CHAIR STAT CBC, ENOCH MOLINA LACTIC RESULTED. AMONIA IS 356-MD SAID TO GIVE RECTAL LACTOSE, HOWEVER PT IS LOWER GI BLEED FROM LAST NIGHT FRESH BLOOD WITH CLOTS SEEN. LACTIC ACID CAME BACK 8.0, MD MADE AWARE. FOUNDRY TENDER SAID TO HAVE PT SEEN BY NEPHROLOGY.
--- NOTE | 2022-04-17 02:41 | NUR ---
SKATE HOPQUALITY COMPLIANCE COORDINATOR BORING MILL OPERATOR FOR METAL DISCUSSED WITH FAMILY MEMBERS ABOUT PT CONDITION & PROGNOSIS. FAMILY AGREED TO PUT PT ON DNR CODE. / KYM CAVAZOS -DAUGHTER, PHONE [phone]/. Serene PEPPER WAS NOTIFIED.
--- NOTE | 2022-04-17 02:49 | NUR ---
ICU/CANARY RAISER BELONGINGS WERE SENT HOME WITH KIKE CAVAZOS Addendum: 04/17/22 at 0253 by MAGALI AUSTIN LVN [phone] KIKE MEJÍA
[2022-04-17 03:21] LABS: ABG BASE EXCESS -25.2 mmol/L; ABG OXYGEN SATURATION 99.7 % (92.0-98.5); ABG PH 6.926 (7.350-7.450); ABG PO2 421.7 mmHg (75.0-100.0); AaDO2 264.3 mmHg; COHb 1.3 % (0.5-1.5); MetHb 0.6 % (0.0-1.5); O2Hb 97.8 % (94.0-97.0); PEEP,BG 0 cm H2O; SITE, ABG Right Radial; VT, ABG 450 mL
--- NOTE | 2022-04-17 03:39 | NUR ---
ICU/SEAT PACK INSPECTOR ABG CAME BACK AT 5.5, OPTOMETRIC ASSISTANT MD SAID NO BICARB DUE TO OVER LOADED.
--- NOTE | 2022-04-17 03:47 | NUR ---
ICU/RECREATION PROGRAM SPECIALIST POST INTUBATION DONE, MD MADE AWARE THAT BICARB IS LOW SAID NO MORE DUE TO FLUID OVER LOAD.
[2022-04-17 05:02] LABS: BASOPHILS % (AUTO) 0.3 % (0.0-2.0); EOSINOPHILS % (AUTO) 0.1 % (0.0-6.0); HEMATOCRIT 25 % (39-51); HEMOGLOBIN 7.3 g/dL (13.5-17.5); LYMPHOCYTES # (AUTO) 0.9 K/uL (0.8-4.8); LYMPHOCYTES % (AUTO) 5.8 % (20.0-44.0); MEAN CORPUSCULAR HGB CONC 29 g/dl (31.0-36.0); MEAN CORPUSCULAR VOLUME 105 fL (80-96); MONOCYTES # (AUTO) 1.3 K/uL (0.1-1.30); MONOCYTES % (AUTO) 8.4 % (2.0-12.0); NEUTROPHILS # (AUTO) 13.2 K/uL (1.8-8.9); NEUTROPHILS % (AUTO) 85.4 % (43.0-81.0); RED BLOOD CELL COUNT(AUTO) 2.37 MIL/uL (4.5-6.0); WHITE BLOOD COUNT (AUTO) 15.4 K/uL (4.3-11.0)
[2022-04-17 05:11] LABS: PLATELET COUNT (AUTO) 45 K/uL (150-450)
[2022-04-17 05:13] LABS: CALCIUM, SERUM 7.5 mg/dL (8.5-10.1); CREATININE 2.7 mg/dL (0.6-1.3); POTASSIUM 5.3 mmol/L (3.5-5.1)
[2022-04-17 05:16] LABS: BILIRUBIN,DIRECT 0.8 mg/dL (0.0-0.2)
[2022-04-17 05:21] LABS: BAND % (MANUAL) 2 % (0.0-5.0); LYMPHOCYTES % (MANUAL) 8 % (16-48); MONOCYTES % (MANUAL) 5 % (0-11.0)
[2022-04-17 05:22] LABS: NEUTROPHILS % (MANUAL) 85 (42-76)
[2022-04-17] MEDS ORDERED: NOREPINEPHRINE 4 MG/4 ML AMPUL IV ONE (05:28)
--- NOTE | 2022-04-17 05:45 | NUR ---
ICU/ENCODING CLERK N/GT WAS PLACED ORALLY TO GIVE LACTULOSE, THIS WAS GIVEN VIA N/G TUBE FOR AMMONIA LEVEL 545
[2022-04-17] MEDS: NOREPINEPHRINE 32 MG in IV NS 0.9% 218 ML IV PRN ×3 (06:07→15:43)
[2022-04-17] MEDS: LACTULOSE 10 G/15 ML UDC (PYXIS) NG SCH ×2 (06:17→12:37)
--- NOTE | 2022-04-17 06:32 | NUR ---
ICU/FAMILY SUPPORT WORKER NEPHROLOGY MANJULA CALLED ABOUT THE LACTIC ACID INCREASED FROM 8.0 TO 12.3, AMMONIA INCREASED TO 545 FROM 359, ALSO PLAT DECREASED DOWN TO 45 FROM 91, AND CO2 7 TO 9. SAID OK, THANK YOU, NO NEW ORDERS.
[2022-04-17] MEDS: IV NS 0.9% 1,000 ML IV PRN (06:39)
--- NOTE | 2022-04-17 07:21 | NUR ---
WOUND CARE CONSULT: PT UNSTABLE FOR SKIN ASSESSMENT AT THIS TIME, MAXED ON PRESSORS PER RN. DISCUSSED SKIN PROTECTION WITH NURSING STAFF. MULTIPLE AREAS OF SKIN DISCOLORATION NOTED IN PHOTOS AND VERY LARGE ABDOMEN. MD IN AGREEMENT WITH PLAN OF CARE.
[2022-04-17] MEDS ORDERED: Z GUARD REMEDY 4 OZ OINT TP PRN (07:30)
[2022-04-17] MEDS: BLOOD SUGAR DIAGNOSTIC 1 EACH STRIP IN SCH ×2 (07:45→12:36)
[2022-04-17] MEDS: FLUDROCORTISONE 0.1 MG TABLET PO SCH (08:49)
[2022-04-17] MEDS: PANTOPRAZOLE 40 MG VIAL IV SCH (08:50)
[2022-04-17] MEDS: CALCIUM CARB 600MG /VIT D 1 EACH TABLET PO SCH (08:50)
[2022-04-17] MEDS: MIDODRINE HCL (5MG) 5 MG TABLET PO SCH ×2 (08:50→12:37)
[2022-04-17] MEDS: DOCUSATE SODIUM 100 MG CAPSULE PO SCH (08:50)
[2022-04-17] MEDS ORDERED: Z GUARD REMEDY 4 OZ OINT TP SCH (09:00)
[2022-04-17] MEDS ORDERED: MEROPENEM 500 MG in IV NS 0.9% 50 ML IV SCH (09:00)
[2022-04-17] MEDS ORDERED: Sodium Bicarbonate 100 MEQ in IV D5 / 0.2% NACL 1,000 ML IV SCH (09:00)
[2022-04-17] MEDS ORDERED: VANCOMYCIN 1 GM in IV D5W 250 ML IV ONE (09:00)
[2022-04-17] MEDS ORDERED: MEROPENEM 1 G in IV NS 0.9% 100 ML IV SCH (09:04)
--- NOTE | 2022-04-17 09:16 | NUR ---
vent changes below per dr. radford: beverly. 30 bpm Addendum: 04/17/22 at 0917 by STANTON BRADSHAW RT Amended: Links added.
[2022-04-17] MEDS: HYDROCORTISONE SOD SUCCINATE 100 MG/2 ML VIAL IV SCH ×2 (09:46→12:37)
[2022-04-17] MEDS ORDERED: SUCCINYLCHOLINE CHLORIDE 20 MG/ML VIAL IV ONE (10:27)
[2022-04-17] MEDS ORDERED: ROCURONIUM BROMIDE 50 MG/5 ML IV ONE (10:27)
[2022-04-17] MEDS ORDERED: ETOMIDATE 2 MG/ML VIAL IV ONE (10:27)
--- NOTE | 2022-04-17 11:40 | NUR ---
[facility] REFERRAL # [id number]
--- NOTE | 2022-04-17 16:25 | NUR ---
RN NOTE PT SHOWED ASYSTOLE ON MONITOR. RN IS NOT ABLE TO PALPATE FEMORAL PULSE, KATY CONNELL CALLED TIME OF AT 1625. FAMILY INFORMED. MD INFORMED. [facility] INFORMED, NO TISSUE DONATION REFERRED.
== END 2022-04-17 18:54 | DRG 280 ==
LOC: ER 19:15 → TRANSITION 22:49 → TELE1 03-23 19:33 → TELE-TD 03-23 21:41 → TELE1 03-24 08:01 → MEDSG1 03-28 06:18 → ICU 03-28 17:50 → TELE1 03-28 17:56 → MEDSG1 03-30 05:52 → ICU 04-16 15:47
PROVIDERS: ADMIT Nurse Practitioner Acute Care; ATTEND Internal Medicine
PROC: 30233R1 Transfusion of Nonautologous Platelets into Peripheral Vein, Percutaneous Approach (ICD-10-PCS; 2022-03-24)
PROC: 0W9G3ZZ Drainage of Peritoneal Cavity, Percutaneous Approach (ICD-10-PCS; principal; 2022-03-29)
PROC: 30233N1 Transfusion of Nonautologous Red Blood Cells into Peripheral Vein, Percutaneous Approach (ICD-10-PCS; 2022-04-12)
PROC: 05HC33Z Insertion of Infusion Device into Left Basilic Vein, Percutaneous Approach (ICD-10-PCS; 2022-04-16)
PROC: 5A1935Z Respiratory Ventilation, Less than 24 Consecutive Hours (ICD-10-PCS; 2022-04-17)
PROC: 0BH18EZ Insertion of Endotracheal Airway into Trachea, Via Natural or Artificial Opening Endoscopic (ICD-10-PCS; 2022-04-17)
DX: K70.31 Alcoholic cirrhosis of liver with ascites (principal); N17.0 Acute kidney failure with tubular necrosis; J96.01 Acute respiratory failure with hypoxia; D61.818 Other pancytopenia; E43 Unspecified severe protein-calorie malnutrition; E72.20 Disorder of urea cycle metabolism, unspecified; D68.9 Coagulation defect, unspecified; E87.2 Acidosis; K92.2 Gastrointestinal hemorrhage, unspecified; I95.9 Hypotension, unspecified; E86.9 Volume depletion, unspecified; E87.6 Hypokalemia; Z79.4 Long term (current) use of insulin; E86.1 Hypovolemia; E87.1 Hypo-osmolality and hyponatremia; W01.0XXA Fall on same level from slipping, tripping and stumbling without subsequent striking against object, initial encounter; Y92.521 Bus station as the place of occurrence of the external cause; Z79.01 Long term (current) use of anticoagulants; Z79.899 Other long term (current) drug therapy; Z99.2 Dependence on renal dialysis; E11.22 Type 2 diabetes mellitus with diabetic chronic kidney disease; E11.65 Type 2 diabetes mellitus with hyperglycemia; E88.09 Other disorders of plasma-protein metabolism, not elsewhere classified; I25.10 Atherosclerotic heart disease of native coronary artery without angina pectoris; J98.11 Atelectasis; K76.6 Portal hypertension; D63.8 Anemia in other chronic diseases classified elsewhere; Z66 Do not resuscitate; I12.9 Hypertensive chronic kidney disease with stage 1 through stage 4 chronic kidney disease, or unspecified chronic kidney disease; N18.9 Chronic kidney disease, unspecified
CPT/HCPCS: 31720; 36410; 36415; 36600; 70450-TC; 71045-TC; 72125-TC; 72170-TC; 73080-TC; 76705-TC; 76770-TC; 76942-TC; 80048-TC; 80053-TC; 80061-TC; 80076-TC; 82140-TC; 82248-TC; 82533; 82803-TC; 82962-TC; 83605-TC; 83735-TC; 84100-TC; 84484-TC; 85025-TC; 85027-TC; 85610-TC; 85730-TC; 86850-TC; 87040-TC; 87081-TC; 93307-TC; 94002-TC; 94799-TC; 97116-TC; 97530-TC; A4216; A6253; A6403; C9113; C9803; G0378; J0330; J1720; J1815; J1885; J2185; J2270; J2370; J2405; J2543; J3370; J3480; J3490; J7030; J7040; J7050; J7060; J7070; P9016; P9034; P9045; P9047